=== PATIENT | male | born 1970 | race Caucasian/White ===

== ENCOUNTER 2019-10-05 17:54 | Outpatient (CLI) | payer SELFPAY ==
[2019-10-05 20:02] LABS: Basophils % 0.4 %; Eosinophils # 0.2 10^3/uL (0.0-0.8); Hematocrit 42.4 % (42.0-52.0); Lymphocytes # 3.5 10^3/uL (0.8-4.8); Lymphocytes % 43.3 %; Mean Corpuscular Hemoglobin 28.6 pg (28.0-34.0); Mean Corpuscular Volume 86.5 fL (80-94); Mean Platelet Volume 10.9 fL (7.4-10.4); Monocytes # 0.7 10^3/uL (0.2-0.9); Monocytes % 8.9 %; Neutrophils # 3.6 10^3/uL (1.8-7.7); Neutrophils % 45.3 %; Nucleated Red Blood Cells % 0 %; Platelet Count 410 10^3/cmm (130-400); Red Cell Distribution Width 13.7 % (12.1-15.1)
[2019-10-05 20:28] LABS: Estmated Average Glucose 295; Hemoglobin A1C 11.9 % (4.0-6.0)
[2019-10-05 20:31] LABS: Alanine Aminotransferase 47 U/L (0-41); Albumin Level 4.5 g/dL (3.5-5.2); Alkaline Phosphatase 60 IU/L (40-130); Anion Gap 25.4 (5-19); Aspartate Amino Transferase 28 U/L (0-40); Blood Urea Nitrogen 17 mg/dL (6-20); Calcium 9.8 mg/dL (8.5-10.5); Carbon Dioxide 19 mmol/L (22-29); Chloride 91 mmol/L (98-107); Chol HDL Ratio 7.54 mg/dL (1.0-5.00); Cholesterol 211 mg/dL (0-200); Globulin 3.3 g/dL (1.3-4.6); Glomerular Filtration Rate 46.6 mL/min (90-130); Glucose 297 mg/dL (65-115); HDL Cholesterol 28 mg/dL (60-100); Osmolality Calculated 281 mOsm/kg (285-295); Potassium 3.4 mmol/L (3.5-5.1); Sodium 132 mmol/L (136-145); Total Bilirubin 0.3 mg/dL (0.15-1.2); Total Protein 7.8 g/dL (6.6-8.7); Triglycerides 412 mg/dL (0-150)
[2019-10-05 20:47] LABS: LDL Cholesterol Direct 118 mg/dL (0-100)
== END 2019-10-05 17:55 | disposition home or self-care (01) ==
LOC: LAB 17:55
PROVIDERS: Visit Provider General Practice
DX: E11.9 Type 2 diabetes mellitus without complications (principal); E78.5 Hyperlipidemia, unspecified
CPT/HCPCS: 80053; 80061; 83036; 83721; 85025

== ENCOUNTER → 2021-05-05 14:34 | Outpatient (BNVA) | payer MEDICAID, SELFPAY | PROVIDERS: Visit Provider Family Medicine | DX: E78.2 Mixed hyperlipidemia (principal); Z76.89 Persons encountering health services in other specified circumstances; E11.40 Type 2 diabetes mellitus with diabetic neuropathy, unspecified; K21.9 Gastro-esophageal reflux disease without esophagitis; Z68.33 Body mass index [BMI] 33.0-33.9, adult; E11.9 Type 2 diabetes mellitus without complications | CPT/HCPCS: 80053; 80061; 83036; 83721; 84443; 85025 ==

== ENCOUNTER → 2021-08-11 08:50 | Outpatient (BNVA) | payer MEDICAID, SELFPAY | PROVIDERS: PCP Family Medicine; Visit Provider Family Medicine | DX: E11.42 Type 2 diabetes mellitus with diabetic polyneuropathy (principal); E78.2 Mixed hyperlipidemia; Z68.33 Body mass index [BMI] 33.0-33.9, adult | CPT/HCPCS: 80048; 80061; 83036 ==

== ENCOUNTER → 2021-11-26 09:13 | Outpatient (BNVA) | payer MEDICAID, SELFPAY | PROVIDERS: PCP Family Medicine; Visit Provider Family Medicine | DX: E11.40 Type 2 diabetes mellitus with diabetic neuropathy, unspecified (principal); E78.00 Pure hypercholesterolemia, unspecified; K04.7 Periapical abscess without sinus; E78.2 Mixed hyperlipidemia; K21.9 Gastro-esophageal reflux disease without esophagitis | CPT/HCPCS: 80048; 80061; 83036 ==

== ENCOUNTER → 2021-12-11 10:13 | Outpatient (BNVA) | payer MEDICAID, SELFPAY | PROVIDERS: PCP Family Medicine; Visit Provider Surgery | DX: Z12.11 Encounter for screening for malignant neoplasm of colon (principal) | CPT/HCPCS: 99024 ==

== ENCOUNTER → 2021-12-24 14:02 | Outpatient (BNVA) | payer MEDICAID, SELFPAY | PROVIDERS: PCP Family Medicine; Visit Provider Surgery | DX: K42.9 Umbilical hernia without obstruction or gangrene (principal); K21.9 Gastro-esophageal reflux disease without esophagitis; K92.1 Melena | CPT/HCPCS: 99204 ==

== ENCOUNTER → 2022-03-16 08:47 | Outpatient (BNVA) | payer MEDICAID, SELFPAY | PROVIDERS: PCP Family Medicine; Visit Provider Family Medicine | DX: E78.2 Mixed hyperlipidemia (principal); Z12.5 Encounter for screening for malignant neoplasm of prostate; E11.8 Type 2 diabetes mellitus with unspecified complications | CPT/HCPCS: 80053; 80061; 83036; 84153; 85025 ==

== ENCOUNTER 2022-04-06 05:40 | Day surgery (SDC) | payer MEDICAID, SELFPAY ==
[2022-03-31 14:33] VITALS: BMI 32.5
[2022-04-06 06:12] VITALS: BP 139/85; PULSE 104; RESP 18; TEMP 36.2; O2SAT 98
[2022-04-06] MEDS: sodium chloride 0.9% 1,000 ML 30 ML IV (06:19)
[2022-04-06 06:20] LABS: Glucose Point of Care 139 mg/dL (70-110)
--- NOTE | 2022-04-06 06:55 | ANES.PREANE2 ---
Pre-Anesthetic Assessment Height/Weight: Height 1.83 m Weight 108.862 kg Temp Pulse Resp BP Pulse Ox O2 Del Method 97.2 F L 104 H 18 139/85 98 04/06/22 06:12 04/06/22 06:12 04/06/22 06:12 04/06/22 06:12 04/06/22 06:12 04/06/22 06:12 Preop Diagnosis: screening Operation Date: 04/06/22 07:30 Proposed Procedures s Egd and Colonoscopy 56674,65611,Z12.11(Not Applicable) - Rao Antony DO p Colonoscopy 66345,Z12.11(Not Applicable) - Rao Antony DO Familial anesthetic complications: none Was Beta Zia taken within 24 hours: N/A Was Clonidine taken within 24 hours: N/A Last intake: Intake Last Liquid Date 04/05/22 Last Liquid Time 14:00 Last Solid Date 04/04/22 Last Solid Time 14:00 Social No alcohol and No tobacco Exam alert, oriented x 3, clear to auscultation bilaterally and regular rate & rhythm Airway Submandibular: within normal limits Cervical ROM: within normal limits Mallampati: Class II Dentition: chipped and loose Comments: Comments: poor dentition Pulmonary Sleep Apnea CV/HEM Hypertension Chronic Renal Failure (stage 3 no dialysis) Hepatic None reported GI Gastroesophageal Reflux Disease (controlled) Metabolic Diabetes Mellitus, Hyperlipidemia and Morbid Obesity type 1 Musc/skel Lower Back Pain Neuropsych Neuropathy Anesthetic Plan ASA status: 3 Anesthesia: MAC Risk of > 500 ml blood loss (7ml/kg in children): No Medications/Allergies Home Medications Medication Instructions Recorded Confirmed Last Taken Type diabetic supplies, miscellan. #1 ea 05/12/21 03/16/22 04/04/22 Rx atorvastatin 40 mg tablet 40 mg PO DAILY #90 tabs 11/26/21 03/31/22 04/04/22 Rx canagliflozin 300 mg tablet 300 mg PO DAILY #90 tabs 11/26/21 03/31/22 04/04/22 Rx (Invokana) lisinopril 20 mg tablet 20 mg PO DAILY #90 tabs 11/26/21 03/31/22 04/04/22 Rx metformin 1,000 mg tablet 1,000 mg PO BID #180 tabs 11/26/21 03/31/22 04/04/22 Rx peg 3350-electrolytes 236 240 ml PO Q10M #4,000 mL 12/24/21 03/31/22 Unknown Rx gram-22.74 gram-6.74 gram-5.86 gram solution (Golytely) hydrochlorothiazide 25 mg tablet See Rx Instructions .Route 01/19/22 03/31/22 04/06/22 04:00 Rx .COMPLEX #90 tabs tamsulosin 0.4 mg capsule See Rx Instructions .Route 01/19/22 03/31/22 04/04/22 Rx .COMPLEX #90 caps pregabalin 50 mg capsule (Lyrica) 50 mg PO BID #60 caps 03/10/22 03/31/22 04/04/22 Rx insulin glargine 100 unit/mL (3 25 unit (0.25 mL) SUBCUT DAILY #15 03/16/22 03/31/22 04/04/22 Rx mL) subcutaneous pen (Lantus mL Solostar U-100 Insulin) esomeprazole magnesium 40 mg 40 mg PO DAILY 04/06/22 03/31/22 04/04/22 History capsule,delayed release (Nexium) Allergies Allergy/AdvReac Type Severity Reaction Status Date / Time No Known Allergies Allergy Verified 03/16/22 08:13 Current Medications Generic Name Dose Route Start Last Admin Trade Name Freq PRN Reason Stop Dose Admin Sodium Chloride 1,000 mls @ 30 mls/hr 04/06/22 06:00 04/06/22 06:19 Sodium Chloride 0.9% IV 04/07/22 05:59 30 mls/hr .Q24H DIANE Administration PFSH Anesthesia Medical History Reducible umbilical hernia Social History Smoking and tobacco status: never smoked Alcohol intake: never Data Anesthesia Cardiac Studies: No Data to Display
--- NOTE | 2022-04-06 06:58 | PM.HP ---
Providers/Chief Complaint Primary Care Provider: Andrzej Clarke DO Chief Complaint: Z12.11 History of Present Illness Bola Sheriff is a 51 year old male here for EGD and colonoscopy Medications/Allergies Home Medications Medication Instructions Recorded Confirmed Last Taken Type diabetic supplies, miscellan. #1 ea 05/12/21 03/16/22 04/04/22 Rx atorvastatin 40 mg tablet 40 mg PO DAILY #90 tabs 11/26/21 03/31/22 04/04/22 Rx canagliflozin 300 mg tablet 300 mg PO DAILY #90 tabs 11/26/21 03/31/22 04/04/22 Rx (Invokana) lisinopril 20 mg tablet 20 mg PO DAILY #90 tabs 11/26/21 03/31/22 04/04/22 Rx metformin 1,000 mg tablet 1,000 mg PO BID #180 tabs 11/26/21 03/31/22 04/04/22 Rx peg 3350-electrolytes 236 240 ml PO Q10M #4,000 mL 12/24/21 03/31/22 Unknown Rx gram-22.74 gram-6.74 gram-5.86 gram solution (Golytely) hydrochlorothiazide 25 mg tablet See Rx Instructions .Route 01/19/22 03/31/22 04/06/22 04:00 Rx .COMPLEX #90 tabs tamsulosin 0.4 mg capsule See Rx Instructions .Route 01/19/22 03/31/22 04/04/22 Rx .COMPLEX #90 caps pregabalin 50 mg capsule (Lyrica) 50 mg PO BID #60 caps 03/10/22 03/31/22 04/04/22 Rx insulin glargine 100 unit/mL (3 25 unit (0.25 mL) SUBCUT DAILY #15 03/16/22 03/31/22 04/04/22 Rx mL) subcutaneous pen (Lantus mL Solostar U-100 Insulin) esomeprazole magnesium 40 mg 40 mg PO DAILY 04/06/22 03/31/22 04/04/22 History capsule,delayed release (Nexium) Allergies Allergy/AdvReac Type Severity Reaction Status Date / Time No Known Allergies Allergy Verified 03/16/22 08:13 PFSH Acute PFSH: Medical History Reducible umbilical hernia Social History Smoking and tobacco status: never smoked Alcohol intake: never Vitals/I&O/Wt Last Vital Signs Temp 97.2 F L 04/06/22 06:12 Pulse 104 H 04/06/22 06:12 Resp 18 04/06/22 06:12 BP 139/85 04/06/22 06:12 Pulse Ox 98 04/06/22 06:12 O2 Del Method 04/06/22 06:12 A&P Assessment and plan (1) GERD without esophagitis: (2) Screening for malignant neoplasm of colon: Plan EGD and colonoscopy Attestations Medical Necessity Statement*: Home Coding Level of Care Code Acute Library Customer Service Clerk for Chg Fwd Diagnoses GERD without esophagitis K21.9 Screening for malignant neoplasm of colon Z12.11
[2022-04-06 07:18] VITALS: BP 120/78; PULSE 95; RESP 18; TEMP 36.5; O2SAT 94
--- NOTE | 2022-04-06 07:22 | P.PCN_ITS ---
PACU note Narrative: VSS, Good respiratory effort, report to SENIOR FINANCE MANAGER Exam: awake
--- NOTE | 2022-04-06 07:22 | PM.PACU ---
PACU note Narrative: VSS, Good respiratory effort, report to BAKERY ASSOCIATE Exam: awake
[2022-04-06 07:33] VITALS: BP 120/85; PULSE 87; RESP 18; O2SAT 95
--- NOTE | 2022-04-06 13:49 | ANE.PACU2 ---
Inpatient post-anesthesia follow up: Airway intact: Yes Vital signs: Temperature 97.7 F Pulse Rate 87 Respiratory Rate 18 Blood Pressure 120/85 Pulse Oximetry 95 Oxygen Delivery Me thod Room Air Oxygen Flow Rate Fraction of Inspir ed Oxygen Hydration adequate: Yes Nausea and vomiting: No Pain level: 1 Mental status: Baseline
== END 2022-04-06 07:39 | disposition home or self-care (01) ==
PROVIDERS: PCP Family Medicine; Visit Provider Surgery
PROC: 0DJ08ZZ Inspection of Upper Intestinal Tract, Via Natural or Artificial Opening Endoscopic (ICD-10-PCS; CPT 43235; principal; 2022-04-06 07:30)
PROC: 0DJD8ZZ Inspection of Lower Intestinal Tract, Via Natural or Artificial Opening Endoscopic (ICD-10-PCS; CPT 45330; 2022-04-06 07:30)
DX: Z12.11 Encounter for screening for malignant neoplasm of colon (principal); K21.9 Gastro-esophageal reflux disease without esophagitis; E10.22 Type 1 diabetes mellitus with diabetic chronic kidney disease; I12.9 Hypertensive chronic kidney disease with stage 1 through stage 4 chronic kidney disease, or unspecified chronic kidney disease; N18.30 Chronic kidney disease, stage 3 unspecified; Z79.84 Long term (current) use of oral hypoglycemic drugs; Z79.4 Long term (current) use of insulin; K29.50 Unspecified chronic gastritis without bleeding; B96.81 Helicobacter pylori [H. pylori] as the cause of diseases classified elsewhere; G47.30 Sleep apnea, unspecified; E78.5 Hyperlipidemia, unspecified; E66.01 Morbid (severe) obesity due to excess calories
CPT/HCPCS: 36416; 43239; 45330; 82962; 88305; 88342; J2704; J7030

== ENCOUNTER 2022-06-18 08:26 | Day surgery (SDC) | payer MEDICAID, SELFPAY ==
[2022-06-17 11:25] VITALS: BMI 32.5
[2022-06-18] MEDS: sodium chloride 0.9% 1,000 ML 30 ML IV (09:15)
[2022-06-18 09:21] VITALS: BP 146/88; PULSE 90; RESP 18; TEMP 36.5; O2SAT 97
[2022-06-18 09:28] LABS: Glucose Point of Care 189 mg/dL (70-110)
--- NOTE | 2022-06-18 10:19 | ANES.PREANE2 ---
Pre-Anesthetic Assessment Height/Weight: Height 1.83 m Weight 108.862 kg Temp Pulse Resp BP Pulse Ox O2 Del Method 97.7 F 90 18 146/88 97 06/18/22 09:21 06/18/22 09:21 06/18/22 09:21 06/18/22 09:21 06/18/22 09:21 06/18/22 09:21 Preop Diagnosis: screening Operation Date: 06/18/22 10:45 Proposed Procedures p Colonoscopy 36142,Z12.11(Not Applicable) - Rao Antony DO Familial anesthetic complications: None Was Beta Zia taken within 24 hours: N/A Was Clonidine taken within 24 hours: N/A Last intake: Intake Last Liquid Date 06/17/22 Last Liquid Time 21:00 Last Solid Date 06/16/22 Last Solid Time 14:00 Social No alcohol and No tobacco Exam alert, oriented x 3, clear to auscultation bilaterally and regular rate & rhythm Airway Mallampati: Class III Dentition: other (poor dentition) Comments: Comments: multiple missing/chipped Pulmonary Sleep Apnea CV/HEM Hypertension Chronic Renal Insufficiency Metabolic Diabetes Mellitus and Hyperlipidemia Anesthetic Plan ASA status: 3 Anesthesia: MAC Risk of > 500 ml blood loss (7ml/kg in children): No Medications/Allergies Home Medications Medication Instructions Recorded Confirmed Last Taken Type diabetic supplies, miscellan. #1 ea 05/12/21 04/28/22 04/04/22 Rx canagliflozin 300 mg tablet 300 mg PO DAILY #90 tabs 11/26/21 06/17/22 06/16/22 Rx (Invokana) lisinopril 20 mg tablet 20 mg PO DAILY #90 tabs 11/26/21 06/17/22 06/17/22 Rx pregabalin 50 mg capsule (Lyrica) 50 mg PO BID #60 caps 03/10/22 06/18/22 06/17/22 Rx insulin glargine 100 unit/mL (3 25 unit (0.25 mL) SUBCUT DAILY #15 03/16/22 06/17/22 06/16/22 Rx mL) subcutaneous pen (Lantus mL Solostar U-100 Insulin) atorvastatin 40 mg tablet 40 mg PO DAILY #90 tabs 06/14/22 06/18/22 06/16/22 Rx hydrochlorothiazide 25 mg tablet 25 mg PO DAILY 06/17/22 06/17/22 06/16/22 History metformin 1,000 mg tablet 1,000 mg PO DAILY 06/17/22 06/17/22 06/16/22 History tamsulosin 0.4 mg capsule 0.4 mg PO DAILY 06/17/22 06/17/22 06/16/22 History Allergies Allergy/AdvReac Type Severity Reaction Status Date / Time No Known Allergies Allergy Verified 06/17/22 11:21 [facility] Anesthesia Medical History (Updated 04/28/22 @ 16:38 by Rao Antony DO) Helicobacter pylori gastritis Reducible umbilical hernia Social History Smoking and tobacco status: never smoked Alcohol intake: never Data Anesthesia Cardiac Studies: No Data to Display
--- NOTE | 2022-06-18 10:43 | P.HP_ITS ---
Providers/Chief Complaint Primary Care Provider: Andrzej Clarke DO Chief Complaint: Z12.11 History of Present Illness Bola Sheriff is a 51 year old male here for a screening colonoscopy Medications/Allergies Home Medications Medication Instructions Recorded Confirmed Last Taken Type diabetic supplies, miscellan. #1 ea 05/12/21 04/28/22 04/04/22 Rx canagliflozin 300 mg tablet 300 mg PO DAILY #90 tabs 11/26/21 06/17/22 06/16/22 Rx (Invokana) lisinopril 20 mg tablet 20 mg PO DAILY #90 tabs 11/26/21 06/17/22 06/17/22 Rx pregabalin 50 mg capsule (Lyrica) 50 mg PO BID #60 caps 03/10/22 06/18/22 06/17/22 Rx insulin glargine 100 unit/mL (3 25 unit (0.25 mL) SUBCUT DAILY #15 03/16/22 06/17/22 06/16/22 Rx mL) subcutaneous pen (Lantus mL Solostar U-100 Insulin) atorvastatin 40 mg tablet 40 mg PO DAILY #90 tabs 06/14/22 06/18/22 06/16/22 Rx hydrochlorothiazide 25 mg tablet 25 mg PO DAILY 06/17/22 06/17/22 06/16/22 Hist ory metformin 1,000 mg tablet 1,000 mg PO DAILY 06/17/22 06/17/22 06/16/22 History tamsulosin 0.4 mg capsule 0.4 mg PO DAILY 06/17/22 06/17/22 06/16/22 History Allergies Allergy/AdvReac Type Severity Reaction Status Date / Time No Known Allergies Allergy Verified 06/17/22 11:21 PFSH Acute PFSH: Medical History (Updated 04/28/22 @ 16:38 by Rao Antony DO) Helicobacter pylori gastritis Reducible umbilical hernia Social History Smoking and tobacco status: never smoked Alcohol intake: never Vitals/I&O/Wt Last Vital Signs Temp 97.7 F 06/18/22 09:21 Pulse 90 06/18/22 09:21 Resp 18 06/18/22 09:21 BP 146/88 06/18/22 09:21 Pulse Ox 97 06/18/22 09:21 O2 Del Method 06/18/22 09:21 Weight last 48 hrs Weight 240 lb A&P Assessment and plan (1) Colon cancer screening: Plan Screening colonoscopy Attestations Medical Necessity Statement*: Home Coding Level of Care Code Acute Code for Chg Fwd Diagnoses Colon cancer screening Z12.11
[2022-06-18 11:10] VITALS: BP 124/83; PULSE 79; RESP 16; TEMP 36.2; O2SAT 98
[2022-06-18 11:20] VITALS: BP 126/89; PULSE 83; RESP 16; O2SAT 95
--- NOTE | 2022-06-18 17:09 | ANE.PACU2 ---
Inpatient post-anesthesia follow up: Airway intact: Yes Vital signs: Temperature 97.1 F Pulse Rate 83 Respiratory Rate 16 Blood Pressure 126/89 Pulse Oximetry 95 Oxygen Delivery Me thod Room Air Oxygen Flow Rate Fraction of Inspir ed Oxygen Hydration adequate: Yes Nausea and vomiting: No Pain level: 1 Mental status: Baseline
== END 2022-06-18 11:31 | disposition home or self-care (01) ==
PROVIDERS: PCP Family Medicine; Visit Provider Surgery
PROC: 0DJD8ZZ Inspection of Lower Intestinal Tract, Via Natural or Artificial Opening Endoscopic (ICD-10-PCS; CPT 45378; principal; 2022-06-18 10:45)
DX: Z12.11 Encounter for screening for malignant neoplasm of colon (principal); Z79.4 Long term (current) use of insulin; K57.30 Diverticulosis of large intestine without perforation or abscess without bleeding; G47.30 Sleep apnea, unspecified; I10 Essential (primary) hypertension; E11.9 Type 2 diabetes mellitus without complications; E78.5 Hyperlipidemia, unspecified
CPT/HCPCS: 36416; 82962; G0121; J2704; J7030

== ENCOUNTER → 2022-09-14 09:21 | Outpatient (BNVA) | payer MEDICAID, SELFPAY | PROVIDERS: PCP Family Medicine; Visit Provider Family Medicine | DX: E11.40 Type 2 diabetes mellitus with diabetic neuropathy, unspecified (principal); E78.2 Mixed hyperlipidemia | CPT/HCPCS: 80048; 83036 ==

== ENCOUNTER → 2022-09-25 07:54 | Outpatient (BNVA) | payer MEDICAID, SELFPAY | PROVIDERS: PCP Family Medicine | DX: J02.9 Acute pharyngitis, unspecified (principal) | CPT/HCPCS: 87880 ==

== ENCOUNTER 2022-11-18 08:37 | Inpatient (IN) | payer MEDICAID, SELFPAY ==
[2022-11-18] VITALS (21 sets, daily range): BP systolic 94–157; BP diastolic 68–89; PULSE 62–105; RESP 16–20; TEMP 36.1–36.9; O2SAT 96–100; BMI 33.9
--- NOTE | 2022-11-18 08:40 | XR_ITS ---
WS: [id number] XR toe LT min 2V [id number] REASON FOR EXAM: great toe FINDINGS: Comminuted fracture of the tuft of the distal phalanx of the great toe. No radiopaque soft tissue foreign body. XR/XR toe LT min 2V [id number] IMPRESSION: Left great toe fracture as above.
--- NOTE | 2022-11-18 08:58 | ED_ITS ---
HPI - Extremity Problem General: Chief complaint: Extremity Injury, Lower Stated complaint: diabetic, black spot on Left big toe Time Seen by Provider: 11/18/22 08:39 Source: patient Mode of arrival: ambulatory History of Present Illness: 52-year-old male with a known history of insulin-dependent diabetes presents emergency room from the urgent care clinics. On November 07 he had hurt his toe he got a black spot on the tip of the toe since then he developed an ulcer at the medial tip of the left great toe. He tried to treat it at home with various home remedies soaking cleaning with alcohol topical bandages and topical antibi otics. It is progressively worsened gotten red and inflamed the last 24 hours the redness is gone from involving only the toe to extending proximally across the MP joint into the forefoot. It has a foul odor to it as well. He denies any fever sweats or chills he has a history of peripheral neuropathy. No history of peripheral vascular disease or coronary artery disease. MD Complaint: extremity swelling Onset (ago): day(s) () Pain Consistency: constant Location: left and toe (Great) Relieving factors: nothing Exacerbating factors: nothing Associated symptoms: Deny arthralgias, chest pain, fever(s), myalgias, rash, short of breath or other Review of Systems Const: Denies: fever(s) or chills ENMT: Denies: throat pain, ear or mastoid pain, nasal discharge or nasal congestion Card: Denies: chest pain Resp: Denies: dyspnea, productive cough or non-productive cough GI: Denies: abdominal pain, nausea, vomiting, hematemesis, coffee ground emesis, diarrhea, constipation, bloating, hematochezia or melena : Denies: flank pain, dysuria, urinary frequency or urinary urgency Skin/Breast: Reports: new lesions and changing lesions; Denies: rash or pruritus PFSH ED PFSH: Medical History Helicobacter pylori gastritis Reducible umbilical hernia Social History Smoking and tobacco status: never smoked Alcohol intake: never Substance/Drug Use: never Physical Exam Const: GENERAL APPEARANCE: cooperative and comfortable ORIENTATION/CONSCIOUSNESS: Yes awake, Yes oriented to person, Yes oriented to place and Yes oriented to time HENMT: COMMON NORMALS: normocephalic, atraumatic and hearing grossly normal bilaterally HEAD & SCALP: normocephalic and atraumatic Resp: COMMON NORMALS: normal respiratory effort, No retractions, No use of accessory muscles and clear to auscultation bilaterally AUSCULTATION: clear to auscultation bilaterally Cardio: COMMON NORMALS: regular rate, regular rhythm and No murmurs present (Cardio) RATE: regular rate RHYTHM: regular rhythm GI: COMMON NORMALS: Soft to palpation and No hepatosplenomegaly present AUSCULTATION: Yes normoactive bowel sounds PALPATION: Yes Soft to palpation, No Tenderness to palpation present (GI), No Guarding due to palpation present (GI) and Yes No hepatosplenomegaly present Extremity: OTHER: Left great toe has a 1 cm round ulceration at the distal medial tip is involves the full-thickness of the skin. There is significant swelling of the left great toe with proximal erythema and induration extending across the MP joint to the distal portions of the first and met second metatarsals there is also some mild involvement of the second toe medially and dorsally. Neuro: SENSORIUM/ORIENTATION: Yes oriented to person, Yes oriented to place and Yes oriented to time Skin: COMMON NORMALS: no rashes or lesions noted GENERAL SKIN EXAM: no rashes or lesions noted Course Vital Signs: Vital signs: Vital Signs Temperature 98.4 F 11/18/22 08:49 Pulse Rate 98 11/18/22 10:00 Respiratory Rate 16 11/18/22 10:00 Blood Pressure 139/86 11/18/22 10:00 Pulse Oximetry 98 11/18/22 10:00 Oxygen Delivery Me thod Room Air 11/18/22 08:49 MDM - Extremity (Nontraumatic) Medical Decision Making Plain film shows extensive destruction and osteomyelitic changes of the left great toe. Clinically has significant cellulitis. Consult podiatry admit to hospitalist services. Medical Records I reviewed the patient's medical records. Lab Data I reviewed the patient's lab results. 11/18/22 08:57 11/18/22 08:57 Radiology Impressions Toe X-Ray 11/18/22 08:40 IMPRESSION: Left great toe fracture as above. Laboratory Results WBC 9.5 10^3/uL (4.0-10.0) 11/18/22 08:57 RBC 4.35 10^6/uL (4.1-5.3) 11/18/22 08:57 Hgb 11.5 g/dL (11.7-16.6) L 11/18/22 08:57 Hct 35.9 % (42.0-52.0) L 11/18/22 08:57 MCV 82.5 fl (80-94) 11/18/22 08:57 MCH 26.4 pg (28.0-34.0) L 11/18/22 08:57 MCHC 32.0 g/dL (30.0-36.0) 11/18/22 08:57 RDW 15.6 % (12.1-15.1) H 11/18/22 08:57 Plt Count 421 10^3/cmm (130-400) H 11/18/22 08:57 MPV 9.2 fL (7.4-10.4) 11/18/22 08:57 Neut % (Auto) 65.5 % 11/18/22 08:57 Lymph % (Auto) 25.0 % 11/18/22 08:57 [place] % (Auto) 7.7 % 11/18/22 08:57 Eos % (Auto) 1.3 % 11/18/22 08:57 Baso % (Auto) 0.3 % 11/18/22 08:57 Neut # (Auto) 6.19 10^3/uL (1.8-7.7) 11/18/22 08:57 Lymph # (Auto) 2.4 10^3/uL (0.8-4.8) 11/18/22 08:57 [place] # (Auto) 0.7 10^3/uL (0.2-0.9) 11/18/22 08:57 Eos # (Auto) 0.1 10^3/uL (0.0-0.8) 11/18/22 08:57 Baso # (Auto) 0.0 10^3/uL (0.0-0.1) 11/18/22 08:57 Nucleated RBC % (auto) 0 % 11/18/22 08:57 Nucleated RBCs # 0.0 /100WBC 11/18/22 08:57 Sodium 130 mmol/L (136-145) L 11/18/22 08:57 Potassium 3.9 mmol/L (3.5-5.1) 11/18/22 08:57 Chloride 95 mmol/L (98-107) L 11/18/22 08:57 Carbon Dioxide 21 mmol/L (22-29) L 11/18/22 08:57 Anion Gap 17.9 (5-19) 11/18/22 08:57 BUN 21 mg/dL (6-20) H 11/18/22 08:57 Creatinine 1.4 mg/dL (0.7-1.2) H 11/18/22 08:57 GFR Calculation 53.4 mL/min (90-130) L 11/18/22 08:57 Glucose 169 mg/dL (65-115) H 11/18/22 08:57 Calculated Osmolality 277 mOsm/kg (285-295) L 11/18/22 08:57 Calcium 9.6 mg/dL (8.5-10.5) 11/18/22 08:57 Total Bilirubin 0.2 mg/dL (0.15-1.2) 11/18/22 08:57 AST 11 U/L (0-40) 11/18/22 08:57 ALT 16 U/L (0-41) 11/18/22 08:57 Alkaline Phosphatase 58 U/L (40-130) 11/18/22 08:57 C-Reactive Protein 60.2 mg/L (0.0-4.9) H 11/18/22 08:57 Total Protein 8.3 g/dL (6.6-8.7) 11/18/22 08:57 Albumin 4.2 g/dL (3.5-5.2) 11/18/22 08:57 Globulin 4.1 g/dL (1.3-4.6) 11/18/22 08:57 Discharge Plan Discharge Patient Disposition: Admitted As Inpatient Clinical Impression: Osteomyelitis of great toe of left foot, Diabetic neuropathy, Diabetes mellitus type 2, uncontrolled, with complications Condition: Stable Coding Level of Care Code ED Restorative Rehab Aide for Beatriz Acosta
[2022-11-18 09:07] LABS: Basophils % 0.3 %; Eosinophils # 0.1 10^3/uL (0.0-0.8); Eosinophils % 1.3 %; Hematocrit 35.9 % (42.0-52.0); Hemoglobin 11.5 g/dL (11.7-16.6); Lymphocytes # 2.4 10^3/uL (0.8-4.8); Mean Corpuscular Hemoglobin 26.4 pg (28.0-34.0); Mean Corpuscular Volume 82.5 fl (80-94); Mean Platelet Volume 9.2 fL (7.4-10.4); Monocytes # 0.7 10^3/uL (0.2-0.9); Monocytes % 7.7 %; Neutrophils # 6.19 10^3/uL (1.8-7.7); Neutrophils % 65.5 %; Nucleated Red Blood Cells % 0 %; Platelet Count 421 10^3/cmm (130-400); Red Blood Count 4.35 10^6/uL (4.1-5.3); Red Cell Distribution Width 15.6 % (12.1-15.1); White Blood Count 9.5 10^3/uL (4.0-10.0)
[2022-11-18 09:22] LABS: Alanine Aminotransferase 16 U/L (0-41); Albumin Level 4.2 g/dL (3.5-5.2); Alkaline Phosphatase 58 U/L (40-130); Anion Gap 17.9 (5-19); Aspartate Amino Transferase 11 U/L (0-40); Blood Urea Nitrogen 21 mg/dL (6-20); C Reactive Protein 60.2 mg/L (0.0-4.9); Calcium 9.6 mg/dL (8.5-10.5); Carbon Dioxide 21 mmol/L (22-29); Chloride 95 mmol/L (98-107); Globulin 4.1 g/dL (1.3-4.6); Glomerular Filtration Rate 53.4 mL/min (90-130); Glucose 169 mg/dL (65-115); Osmolality Calculated 277 mOsm/kg (285-295); Potassium 3.9 mmol/L (3.5-5.1); Sodium 130 mmol/L (136-145); Total Bilirubin 0.2 mg/dL (0.15-1.2); Total Protein 8.3 g/dL (6.6-8.7)
[2022-11-18] MEDS: vancomycin 1,000 MG in sodium chloride 0.9% 250 ML 250 MG IV (09:47)
--- NOTE | 2022-11-18 10:05 | PM.CONSULT ---
Providers/Reason For Consult Consulting Physician/Specialty*: Parker Fofana D.P.M. Reason for Consult*: Gangrene left great toe. Primary Care Provider: Andrzej Clarke DO History of Present Illness History of Present Illness Bola Sheriff is a 52 year old male presents with gangrene to the left great toe several weeks in duration. Patient is diabetic last A1c 8.6 taken 09/14/2022. Patient denies smoking. 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 Several weeks ago he noticed redness and has progressed. He tried at home soaks with Epsom salts. Noticed increased redness and foul-smelling drainage and went to the emergency department. Review of Systems General: Reports: 10 or more systems reviewed and unremarkable except in HPI and below Const: Denies: fever(s) or chills Eyes: Denies: change in vision Card: Denies: chest pain or palpitations Resp: Denies: dyspnea or productive cough GI: Denies: abdominal pain, nausea or vomiting : Denies: flank pain Musc: Reports: extremity swelling, joint stiffness and deformity Skin/Breast: Reports: erythema, sores, changes in skin color, dry skin, nail changes and change in hair Neuro: Reports: numbness in extremities, sensory changes and difficulty walking Psych: Denies: suicidal ideation Endo: Denies: change in body appearance Jovanny/Lymph: Denies: tender lymph nodes Medications/Allergies Home Medications Medication Instructions Recorded Confirmed Last Taken Type diabetic supplies, miscellan. #1 ea 08/13/22 11/18/22 Unknown Rx pen needle, diabetic 32 gauge x #100 ea 09/01/22 11/18/22 Unknown Rx 1/4 (TechLITE Pen Needle) pregabalin 50 mg capsule (Lyrica) 50 mg PO BID #60 caps 09/07/22 11/18/22 11/18/22 05:00 Rx aspirin 81 mg tablet,delayed 81 mg PO QAM 11/18/22 11/18/22 11/18/22 05:00 History release atorvastatin 40 mg tablet 40 mg PO BEDTIME 11/18/22 11/18/22 11/17/22 History canagliflozin 300 mg tablet 300 mg PO QAM 11/18/22 11/18/22 11/18/22 05:00 History (Invokana) hydrochlorothiazide 25 mg tablet 25 mg PO QAM 11/18/22 11/18/22 11/18/22 05:00 History insulin glargine 100 unit/mL (3 See Rx Instructions .Route .COMPLEX 11/18/22 11/18/22 11/17/22 History mL) subcutaneous pen (Lantus Solostar U-100 Insulin) lisinopril 20 mg tablet 20 mg PO QAM 11/18/22 11/18/22 11/18/22 History metformin 1,000 mg tablet 1,000 mg PO BID 11/18/22 11/18/22 11/18/22 05:00 History multivitamin 1 tab PO QAM 11/18/22 11/18/22 11/18/22 05:00 History pantoprazole 40 mg tablet,delayed 40 mg PO QAM 11/18/22 11/18/22 11/18/22 05:00 History release tamsulosin 0.4 mg capsule 0.4 mg PO QAM 11/18/22 11/18/22 11/18/22 05:00 History Allergies Allergy/AdvReac Type Severity Reaction Status Date / Time No Known Allergies Allergy Verified 11/18/22 09:08 PFSH Acute PFSH: Medical History Helicobacter pylori gastritis Reducible umbilical hernia Social History Smoking and tobacco status: never smoked Alcohol intake: never Substance/Drug Use: never Vitals/I&O/Wt Last Vital Signs Temp 98.4 F 11/18/22 08:49 Pulse 98 11/18/22 10:00 Resp 16 11/18/22 10:00 BP 139/86 11/18/22 10:00 Pulse Ox 98 11/18/22 10:00 O2 Del Method Room Air 11/18/22 08:49 Weight last 48 hrs Weight 250 lb Physical Exam Narrative: GENERAL: Patient is alert and oriented ?3 and in no acute distress. The following is a focused bilateral lower extremity exam. VASCULAR: Dorsalis pedis palpable bilaterally. Posterior tibial arteries palpable. Capillary refill time less than 3 seconds to the right great toe. Delayed at the left great toe. Calf is supple and nontender proximally and distally. Decreased pedal hair growth. Focal edema to the left forefoot and impressive edema at the left great toe. NEUROLOGICAL: Protective sensation intact 0/10 sites, tested with [place] Hannah monofilament to bilateral feet. DERMATOLOGICAL: Full-thickness wound probes to bone at the distal phalanx left great toe. Desquamation left distal toe. Macerated wound margin. Erythema at the left great toe globally extending to the forefoot. MUSCULOSKELETAL: Crepitus with soft tissue palpation at the left great toe distally. Muscle strength +5 in all 3 planes to the bilateral foot and ankle. Data 11/18/22 08:57 11/18/22 08:57 Micro: Microbiology 11/18/22 09:40 Blood Culture - Preliminary Blood SPECIMEN COLLECTED 11/18/22 09:35 Blood Culture - Preliminary Blood SPECIMEN COLLECTED A&P Assessment and plan (1) Osteomyelitis of great toe of left foot: (2) Diabetes mellitus type 2, uncontrolled, with complications: (3) Cellulitis of left foot: Plan 52-year-old insulin-dependent diabetic male presents with gangrene to the left great toe. Soft tissue emphysema appreciated the distal half of the left great toe on plain film x-ray. Also osteo lysis and erosive changes at the distal phalanx consistent with osteomyelitis. Clinically there is a wound at the tuft of the left great toe that probes directly to bone. Patient examined and evaluated, findings and treatment options discussed with patient at length. Wound care and IV antibiotics versus amputation left great toe. Patient is wishing to proceed with contain the infection and help reduce risk of infection ascending into the foot. Given the amount of cellulitis at the left forefoot this will require staged procedure. Planning on left great toe amputation through the metatarsal phalangeal joint today at noon. Will remain n.p.o. We will monitor his soft tissue during this hospitalization and his response to have antibiotics and once soft tissue is improved and quality then we will plan for delayed closure. Coding Level of Care Code Acute Code for [facility] Diagnoses Osteomyelitis of great toe of left foot M86.9 Diabetes mellitus type 2, uncontrolled, with complications Cellulitis of left foot L03.116
--- NOTE | 2022-11-18 10:14 | P.HP_ITS ---
Providers/Chief Complaint Admitting Physician: Michael Chadwick MD, hospitalist Primary Care Provider: Andrzej Clarke DO Chief Complaint: diabetic, black spot on Left big toe History of Present Illness Bola Sheriff is a 52 year old male who presents with concerns of left great toe with lesion, swelling, and drainage. He has been having issues at least since November 07. He believes this started with a blood blister under his distal portion of his toenail. This peeled off, and redness and swelling started. He has not been on any antibiotics. He has known diabetes, with severe neuropathy and reports he cannot feel his feet. He denies any fever, or chills. Podiatry has been consulted as well. Denies any family history of difficulty with anesthesia, bleeding disorder. Reports no exertional chest pain. Denies any exertional symptoms, and can climb several sets of steps without stopping. No history of coronary disease or lung disease. Review of Systems General: Reports: 10 or more systems reviewed and unremarkable except in HPI and below Card: Denies: chest pain Resp: Denies: dyspnea GI: Denies: abdominal pain, hematochezia or melena Medications/Allergies Home Medications Medication Instructions Recorded Confirmed Last Taken Type diabetic supplies, miscellan. #1 ea 08/13/22 11/18/22 Unknown Rx pen needle, diabetic 32 gauge x #100 ea 09/01/22 11/18/22 Unknown Rx 1/4 (TechLITE Pen Needle) pregabalin 50 mg capsule (Lyrica) 50 mg PO BID #60 caps 09/07/22 11/18/22 11/18/22 05:00 Rx aspirin 81 mg tablet,delayed 81 mg PO QAM 11/18/22 11/18/22 11/18/22 05:00 History release atorvastatin 40 mg tablet 40 mg PO BEDTIME 11/18/22 11/18/22 11/17/22 History canagliflozin 300 mg tablet 300 mg PO QAM 11/18/22 11/18/22 11/18/22 05:00 History (Invokana) hydrochlorothiazide 25 mg tablet 25 mg PO QAM 11/18/22 11/18/22 11/18/22 05:00 History insulin glargine 100 unit/mL (3 See Rx Instructions .Route .COMPLEX 11/18/22 11/18/22 11/17/22 History mL) subcutaneous pen (Lantus Solostar U-100 Insulin) lisinopril 20 mg tablet 20 mg PO QAM 11/18/22 11/18/22 11/18/22 History metformin 1,000 mg tablet 1,000 mg PO BID 11/18/22 11/18/22 11/18/22 05:00 History multivitamin 1 tab PO QAM 11/18/22 11/18/22 11/18/22 05:00 History pantoprazole 40 mg tablet,delayed 40 mg PO QAM 11/18/22 11/18/22 11/18/22 05:00 History release tamsulosin 0.4 mg capsule 0.4 mg PO QAM 11/18/22 11/18/22 11/18/22 05:00 History Allergies Allergy/AdvReac Type Severity Reaction Status Date / Time No Known Allergies Allergy Verified 11/18/22 09:08 PFSH Acute PFSH: Medical History (Updated 11/18/22 @ 10:18 by Michael Chadwick MD) BPH (benign prostatic hyperplasia) Diabetes mellitus type 2, uncontrolled, with complications Diabetic nephropathy Diabetic neuropathy GERD (gastroesophageal reflux disease) Helicobacter pylori gastritis Hypercholesterolemia Reducible umbilical hernia Family History (Updated 11/18/22 @ 10:18 by Michael Chadwick MD) Other CAD (coronary artery disease) Cancer Diabetes Hyperlipidemia Hypertension Social History Smoking and tobacco status: never smoked Alcohol intake: never Substance/Drug Use: never Other PFSH information: Supplemental PFSH Information: Denies any surgeries. Vitals/I&O/Wt Last Vital Signs Temp 98.4 F 11/18/22 08:49 Pulse 98 11/18/22 10:00 Resp 16 11/18/22 10:00 BP 139/86 11/18/22 10:00 Pulse Ox 98 11/18/22 10:00 O2 Del Method Room Air 11/18/22 08:49 Weight last 48 hrs Weight 113.398 kg Physical Exam Narrative: General exam no distress HEENT: Atraumatic normocephalic. Oropharynx clear. Neck is supple no lymphadenopathy thyromegaly Cardiovascular regular rate and rhythm without murmur, no S3 or S4 Lungs clear Abdomen is soft positive bowel sounds. No obvious organomegaly exams deferred Extremities no cyanosis or clubbing. Distal left foot with significant skylar thema, culminating in a swollen great toe with peeling skin and slight drainage distally. Skin see findings above Neuro no obvious focal deficits Data 11/18/22 08:57 11/18/22 08:57 Other Labs: X-ray left great toe which I visualize demonstrates evidence of osteomyelitis distal tuft LFTs are normal CRP 60 Calcium and albumin are normal Blood cultures drawn Micro: Microbiology 11/18/22 09:40 Blood Culture - Preliminary Blood SPECIMEN COLLECTED 11/18/22 09:35 Blood Culture - Preliminary Blood SPECIMEN COLLECTED A&P Assessment and plan (1) Osteomyelitis of great toe of left foot: Initiate vancomycin and Zosyn Blood cultures already drawn Podiatry consult. They are considering surgical options and may require delayed closure. CBC tomorrow (2) Cellulitis of left foot: Vancomycin and Zosyn above (3) Diabetes mellitus type 2, uncontrolled, with complications: Initiate sliding scale insulin Hold metformin Continue long-acting insulin Plan Chronic kidney disease, will continue to follow creatinine. BMP tomorrow. Multiple other medical problems as outlined in past medical history Full code Heparin subcutaneous for DVT prophylaxis Attestations Medical Necessity Statement*: Will need greater than 2 midnight stay for evaluation and treatment of cellulitis and osteomyelitis of the left great toe Diagnoses Osteomyelitis of great toe of left foot M86.9 Cellulitis of left foot L03.116 Diabetes mellitus type 2, uncontrolled, with complications Time Spent (min) 40
[2022-11-18] MEDS: piperacillin-tazobactam 3.375 GM in sodium chloride 0.9% (plus) 50 ML IV ×2 (10:55→18:08)
--- NOTE | 2022-11-18 11:59 | ANES.PREANE2 ---
Pre-Anesthetic Assessment Height/Weight: Height 1.83 m Weight 113.398 kg Temp Pulse Resp BP Pulse Ox O2 Del Method 98.5 F 91 18 120/82 98 Room Air 11/18/22 11:35 11/18/22 11:35 11/18/22 11:35 11/18/22 11:35 11/18/22 11:35 11/18/22 11:35 Operation Date: 11/18/22 13:05 Proposed Procedures p Left great toe amputation(Left) - Parker Fofana DPM Familial anesthetic complications: None Was Beta Zia taken within 24 hours: N/A Was Clonidine taken within 24 hours: N/A Last intake: Intake Last Liquid Date 11/18/22 Last Liquid Time 03:00 Last Solid Date 11/18/22 Last Solid Time 03:00 Social No alcohol and No tobacco Exam alert, oriented x 3, clear to auscultation bilaterally and regular rate & rhythm Airway Mallampati: Class III Dentition: chipped CV/HEM Hypertension Metabolic Diabetes Mellitus and Morbid Obesity Anesthetic Plan ASA status: 3 Anesthesia: MAC Risk of > 500 ml blood loss (7ml/kg in children): No Medications/Allergies Home Medications Medication Instructions Recorded Confirmed Last Taken Type diabetic supplies, miscellan. #1 ea 08/13/22 11/18/22 Unknown Rx pen needle, diabetic 32 gauge x #100 ea 09/01/22 11/18/22 Unknown Rx 1/4 (TechLITE Pen Needle) pregabalin 50 mg capsule (Lyrica) 50 mg PO BID #60 caps 09/07/22 11/18/22 11/18/22 05:00 Rx aspirin 81 mg tablet,delayed 81 mg PO QAM 11/18/22 11/18/22 11/18/22 05:00 History release atorvastatin 40 mg tablet 40 mg PO BEDTIME 11/18/22 11/18/22 11/17/22 History canagliflozin 300 mg tablet 300 mg PO QAM 11/18/22 11/18/22 11/18/22 05:00 History (Invokana) hydrochlorothiazide 25 mg tablet 25 mg PO QAM 11/18/22 11/18/22 11/18/22 05:00 History insulin glargine 100 unit/mL (3 See Rx Instructions .Route .COMPLEX 11/18/22 11/18/22 11/17/22 History mL) subcutaneous pen (Lantus Solostar U-100 Insulin) lisinopril 20 mg tablet 20 mg PO QAM 11/18/22 11/18/22 11/18/22 History metformin 1,000 mg tablet 1,000 mg PO BID 11/18/22 11/18/22 11/18/22 05:00 History multivitamin 1 tab PO QAM 11/18/22 11/18/22 11/18/22 05:00 History pantoprazole 40 mg tablet,delayed 40 mg PO QAM 11/18/22 11/18/22 11/18/22 05:00 History release tamsulosin 0.4 mg capsule 0.4 mg PO QAM 11/18/22 11/18/22 11/18/22 05:00 History Allergies Allergy/AdvReac Type Severity Reaction Status Date / Time No Known Allergies Allergy Verified 11/18/22 09:08 Current Medications Generic Name Dose Route Start Last Admin Trade Name Freq PRN Reason Stop Dose Admin Piperacillin Sod/Tazobactam 50 mls @ 12.5 mls/hr 11/18/22 11:00 11/18/22 10:55 Sod 3.375 gm/ Sodium Chloride IV 12.5 mls/hr Q8H DIANE Administration Protocol As Directed [facility] Anesthesia Medical History (Updated 11/18/22 @ 10:18 by Michael Chadwick MD) BPH (benign prostatic hyperplasia) Diabetes mellitus type 2, uncontrolled, with complications Diabetic nephropathy Diabetic neuropathy GERD (gastroesophageal reflux disease) Helicobacter pylori gastritis Hypercholesterolemia Reducible umbilical hernia Family History (Updated 11/18/22 @ 10:18 by Michael Chadwick MD) Other CAD (coronary artery disease) Cancer Diabetes Hyperlipidemia Hypertension Social History Smoking and tobacco status: never smoked Alcohol intake: never Substance/Drug Use: never Supplemental [facility] Information Denies any surgeries. Data Anesthesia 11/18/22 08:57 11/18/22 08:57 Short CBC 11/18/22 Range/Units 08:57 WBC 9.5 (4.0-10.0) 10^3/uL Hgb 11.5 L (11.7-16.6) g/dL Hct 35.9 L (42.0-52.0) % MCV 82.5 (80-94) fl Plt Count 421 H (130-400) 10^3/cmm Neut % (Auto) 65.5 % Neut # (Auto) 6.19 (1.8-7.7) 10^3/uL BMP 11/18/22 08:57 Sodium 130 L Potassium 3.9 Chloride 95 L Carbon Dioxide 21 L BUN 21 H Creatinine 1.4 H Glucose 169 H Calcium 9.6 Liver Function 11/18/22 Range/Units 08:57 Total Bilirubin 0.2 (0.15-1.2) mg/dL AST 11 (0-40) U/L ALT 16 (0-41) U/L Alkaline Phosphatase 58 (40-130) U/L Albumin 4.2 (3.5-5.2) g/dL Coags 11/18/22 08:57 C-Reactive Protein 60.2 H Microbiology 11/18/22 09:40 Blood Culture - Preliminary Blood SPECIMEN COLLECTED 11/18/22 09:35 Blood Culture - Preliminary Blood SPECIMEN COLLECTED Cardiac Studies: No Data to Display
[2022-11-18] MEDS: sodium chloride 0.9% 1,000 ML 30 ML IV (12:02)
--- NOTE | 2022-11-18 12:56 | W.PM.OPSUD ---
Surgery/Procedure H&P Update DATE OF PROCEDURE: November 18, 2022 DATE H&P PERFORMED: 11/18/22 CHANGES TO PREVIOUS DOCUMENTATION: None PLANNED PROCEDURE: Operation Date: 11/18/22 13:05 Proposed Procedures p Left great toe amputation(Left) - Parker Fofana DPM
--- NOTE | 2022-11-18 13:30 | P.OP_ITS ---
Operative Report Date of procedure: November 18, 2022 Pre-op diagnosis: Gangrene left great toe Post-op diagnosis: Gangrene left great toe Procedure done: Left great toe amputation. CPT code 10393 Implants: None Specimens removed/disposition: Bone distal phalanx left great toe sent to microbiology for Gram stain, culture and sensitivity. Pathology: Left great toe sent to pathology for permanent Surgeon: Parker Fofana D.P.M. Sandblaster Stone: Fara Estimated blood loss: 10 4 IV fluids: 0 Urine output: 0 Complications: None Findings: Devitalized soft tissue and bone with soft tissue of eczema distal phalanx left great toe. Brief History: 52-year-old insulin-dependent diabetic male presents with gangrene to the left great toe.? Soft tissue emphysema appreciated the distal half of the left great toe on plain film x-ray.? Also osteo lysis and erosive changes at the distal phalanx consistent with osteomyelitis.? Clinically there is a wound at the tuft of the left great toe that probes directly to bone. Patient examined and evaluated, findings and treatment options discussed with patient at length.? Wound care and IV antibiotics versus amputation left great toe.? Patient is wishing to proceed with contain the infection and help reduce risk of infection ascending into the foot.? Given the amount of cellulitis at the left forefoot this will require staged procedure.? Planning on left great toe amputation through the metatarsal phalangeal joint today at noon.? Will remain n.p.o.? We will monitor his soft tissue during this hospitalization and his response to have antibiotics and once soft tissue is improved and quality then we will plan for delayed closure. Procedure: Under mild sedation the patient was brought to the operating room and remained on the gurney in supine position. A timeout was performed. Anesthesia was then administered by the anesthesia service. Local anesthesia injected by myself consisting of 30 cc of 0.5% Marcaine plain in a left male block fashion. Well- padded pneumatic tourniquet was applied to the left ankle. The left lower extremity was scrubbed, prepped and draped utilizing normal aseptic technique. No Esmarch bandage was utilized. The left foot was elevated and tourniquet inflated to 250 mmHg. Tissue was directed to the left great toe, full-thickness wound exposed to bone at the distal tuft with purulence and soft tissue crepitus was appreciated. A full-thickness incision was performed down to bone circumferentially and a fishmouth incision technique encompassing the left first metatarsophalangeal joint and the left great toe was disarticulated from the metatarsal phalangeal joint maintaining dorsal and plantar skin flaps. This was passed for operative field. Bone specimen from the distal phalanx sent to microbiology for Gram stain, culture and sensitivity. Remaining toe sent to pathology for gross anatomic review. The incision was irrigated with copious amounts of sterile saline solution. All bleeders were ligated and cauterized as necessary. The head of the first metatarsal was bright white and appropriate density and color without signs of devitalized tissue. Cartilage was healthy appearing. No tracking of purulence at the extensor or flexor tendons. Further irrigation was performed followed saline wet-to-dry dressing consisting of saline, 4 x 4 gauze, Kerlix and Mane wrap. There was impressive cellulitis at the left medial forefoot that will require clinical improvement, likely further debridement with delayed closure once soft tissue improves during this hospital course. Patient tolerated the procedure well and was transferred to the PACU with vital signs stable and vascular status intact. He will be transferred to the floor to continue continue medical management and antibiotic therapies. Podiatry will follow.
--- NOTE | 2022-11-18 14:25 | ANE.PACU2 ---
Inpatient post-anesthesia follow up: Airway intact: Yes Vital signs: Temperature 97.8 F Pulse Rate 93 Respiratory Rate 18 Blood Pressure 94/69 Pulse Oximetry 97 Oxygen Delivery Me thod Room Air Oxygen Flow Rate Fraction of Inspir ed Oxygen Hydration adequate: Yes Nausea and vomiting: Yes Pain level: 1 Mental status: Baseline
[2022-11-18 15:24] LABS: Glucose Point of Care 99 mg/dL (70-110)
[2022-11-18] MEDS: sodium chloride 0.9% 1,000 ML 75 ML IV (15:32)
[2022-11-18 16:47] LABS: Glucose Point of Care 131 mg/dL (70-110)
[2022-11-18] MEDS: heparin 5,000 unit/mL INJ 1 mL 5000 UNIT SUBCUT (18:07)
[2022-11-18] MEDS: pregabalin 50 mg Capsule PO (18:07)
[2022-11-18] MEDS: acetaminophen 325 mg Tablet 650 MG PO (19:45)
[2022-11-18 20:42] LABS: Glucose Point of Care 220 mg/dL (70-110)
[2022-11-18] MEDS: atorvastatin 40 mg Tablet PO ×2 (20:47→20:48)
[2022-11-18] MEDS: insulin glargine 100 units/1 mL 10 UNIT SUBCUT (20:49)
[2022-11-18] MEDS: insulin lispro 100 unit/1 mL SUBCUT (20:49)
[2022-11-18] MEDS: vancomycin 1,500 MG/300 ML PIGGYBACK 200 MG IV (22:18)
[2022-11-19] VITALS (7 sets, daily range): BP systolic 106–118; BP diastolic 68–76; PULSE 80–98; RESP 15–18; TEMP 36.3–37; O2SAT 92–98
[2022-11-19] MEDS: piperacillin-tazobactam 3.375 GM in sodium chloride 0.9% (plus) 50 ML IV ×3 (03:49→18:36)
[2022-11-19] MEDS: tamsulosin 0.4 mg Capsule PO (05:48)
[2022-11-19] MEDS: pantoprazole DR 40 mg Tablet PO (05:48)
[2022-11-19] MEDS: sodium chloride 0.9% 1,000 ML 75 ML IV (05:48)
[2022-11-19] MEDS: lisinopril 20 mg Tablet PO (05:48)
[2022-11-19] MEDS: aspirin 81 mg EC Tablet PO (05:48)
[2022-11-19] MEDS: heparin 5,000 unit/mL INJ 1 mL 5000 UNIT SUBCUT ×2 (06:16→18:37)
[2022-11-19 06:25] LABS: Basophils % 0.2 %; Eosinophils # 0.1 10^3/uL (0.0-0.8); Eosinophils % 1.5 %; Hemoglobin 11.5 g/dL (11.7-16.6); Lymphocytes # 1.6 10^3/uL (0.8-4.8); Lymphocytes % 19.4 %; Mean Corpuscular HGB Conc 31.9 g/dL (30.0-36.0); Mean Corpuscular Hemoglobin 26.7 pg (28.0-34.0); Mean Corpuscular Volume 83.5 fl (80-94); Mean Platelet Volume 9.4 fL (7.4-10.4); Monocytes # 0.6 10^3/uL (0.2-0.9); Monocytes % 7.1 %; Neutrophils # 5.85 10^3/uL (1.8-7.7); Neutrophils % 71.6 %; Nucleated Red Blood Cells % 0 %; Platelet Count 419 10^3/cmm (130-400); Red Blood Count 4.31 10^6/uL (4.1-5.3); Red Cell Distribution Width 15.5 % (12.1-15.1); White Blood Count 8.2 10^3/uL (4.0-10.0)
[2022-11-19 06:39] LABS: Glucose Point of Care 260 mg/dL (70-110)
[2022-11-19 06:47] LABS: Alanine Aminotransferase 16 U/L (0-41); Albumin Level 3.9 g/dL (3.5-5.2); Alkaline Phosphatase 53 U/L (40-130); Anion Gap 15.5 (5-19); Aspartate Amino Transferase 11 U/L (0-40); Blood Urea Nitrogen 15 mg/dL (6-20); Calcium 8.9 mg/dL (8.5-10.5); Carbon Dioxide 21 mmol/L (22-29); Chloride 99 mmol/L (98-107); Globulin 3.4 g/dL (1.3-4.6); Glomerular Filtration Rate 101.9 mL/min (90-130); Glucose 115 mg/dL (65-115); Osmolality Calculated 274 mOsm/kg (285-295); Potassium 4.5 mmol/L (3.5-5.1); Sodium 131 mmol/L (136-145); Total Bilirubin 0.4 mg/dL (0.15-1.2); Total Protein 7.3 g/dL (6.6-8.7)
--- NOTE | 2022-11-19 06:54 | PM.PN ---
Subjective Subjective: Patient seen bedside this morning for dressing change. Denies any acute events overnight. Endorsing phantom pain of the left great. Patient denies any subjective nausea, vomiting, fever, chills, shortness of breath or chest pain. Vitals/I&O/Wt Last Vital Signs Temp 97.3 F L 11/19/22 04:39 Pulse 98 11/19/22 04:39 Resp 16 11/19/22 04:39 BP 118/76 11/19/22 04:39 Pulse Ox 96 11/19/22 04:39 O2 Del Method Room Air 11/18/22 17:55 11/18/22 11/18/22 11/19/22 14:59 22:59 06:59 Intake Total 358 / 358 700 / 1058 1450 / 2508 Output Total 950 / 960 850 / 1810 Balance 348 / 348 -250 / 98 600 / 698 Weight last 48 hrs Weight 250 lb Physical Exam Narrative: GENERAL: Patient is alert and oriented ?3 and in no acute distress. The following is a focused bilateral lower extremity exam. VASCULAR: Dorsalis pedis palpable bilaterally. Posterior tibial arteries palpable. Capillary refill time less than 3 seconds to the right great toe. Calf is supple and nontender proximally and distally. Decreased pedal hair growth. Improved edema of the left forefoot. NEUROLOGICAL: Protective sensation intact 0/10 sites, tested with [place] monofilament to bilateral feet. DERMATOLOGICAL: Amputation site shows stable interval of receding cellulitis. No active bleeding. No purulence expressed. MUSCULOSKELETAL: Status post left great toe amputation. Data 11/19/22 05:53 11/19/22 05:53 Micro: Microbiology 11/18/22 09:40 Blood Culture - Preliminary Blood SPECIMEN COLLECTED 11/18/22 09:35 Blood Culture - Preliminary Blood SPECIMEN COLLECTED A&P Assessment and plan (1) Osteomyelitis of great toe of left foot: (2) Diabetes mellitus type 2, uncontrolled, with complications: (3) Cellulitis of left foot: Plan 52-year-old insulin-dependent diabetic male presents with gangrene to the left great toe. Soft tissue emphysema appreciated the distal half of the left great toe on plain film x-ray. Also osteo lysis and erosive changes at the distal phalanx consistent with osteomyelitis. Clinically there is a wound at the tuft of the left great toe that probes directly to bone. Left great toe amputation date of operation 11/18/2022 Receiving empiric IV antibiotics with improvement, subsiding cellulitis of the left foot appreciated clinically at today's visit. Plan for delayed closure 11/20/2022 Ordered OrthoWedge heel shoe left foot. Elevate left foot while resting Continue anticoagulants Level of amputation curative of osteomyelitis. Planning for p.o. antibiotics for soft tissue 2 weeks at discharge. Will follow-up in podiatry clinic next week. Attestations Medical Necessity Statement*: Gangrene left great toe Coding Level of Care Code Acute Code for [facility] Fwd Diagnoses Osteomyelitis of great toe of left foot M86.9 Diabetes mellitus type 2, uncontrolled, with complications Cellulitis of left foot L03.116
--- NOTE | 2022-11-19 08:15 | PM.PN ---
Subjective Subjective: No complaints this morning. Patient underwent toe amputation yesterday. Some discomfort overnight. Distal bone was sent for pathology. Plans are for delayed closure. I suspect this will be performed tomorrow, but awaiting plans of podiatry. Having some issues with insomnia. Medications: Reviewed: Yes Vitals/I&O/Wt Last Vital Signs Temp 97.3 F L 11/19/22 04:39 Pulse 98 11/19/22 04:39 Resp 16 11/19/22 04:39 BP 118/76 11/19/22 04:39 Pulse Ox 96 11/19/22 04:39 O2 Del Method Room Air 11/18/22 17:55 11/18/22 11/19/22 11/19/22 22:59 06:59 14:59 Intake Total 700 / 1058 1450 / 2508 Output Total 950 / 960 850 / 1810 500 / 500 Balance -250 / 98 600 / 698 -500 / -500 Weight last 48 hrs Weight 113.398 kg Physical Exam Narrative: General exam no distress Neck is supple no lymphadenopathy thyromegaly Cardiovascular regular rate and rhythm without murmur, no S3 or S4 Lungs clear Abdomen is soft positive bowel sounds. No obvious organomegaly Extremities no cyanosis or clubbing. Trace edema bilaterally. Dressing left foot clean and dry Data 11/19/22 05:53 11/19/22 05:53 Micro: Microbiology 11/18/22 09:40 Blood Culture - Preliminary Blood SPECIMEN COLLECTED 11/18/22 09:35 Blood Culture - Preliminary Blood SPECIMEN COLLECTED A&P Assessment and plan (1) Osteomyelitis of great toe of left foot: Continue vancomycin and Zosyn Blood cultures already drawn, results pending Appreciate podiatry consult White blood cell count is improved (2) Cellulitis of left foot: Vancomycin and Zosyn above (3) Diabetes mellitus type 2, uncontrolled, with complications: Continue sliding scale insulin Hold metformin Increase Lantus to 10 units twice daily Plan Chronic kidney disease, will continue to follow creatinine. Creatinine improved today Insomnia, add trazodone as needed Multiple other medical problems as outlined in past medical history Full code Heparin subcutaneous for DVT prophylaxis Attestations Medical Necessity Statement*: Needs continued hospital stay and for definitive care, closure of surgical wound secondary to left great toe osteomyelitis status post amputation. Diagnoses Osteomyelitis of great toe of left foot M86.9 Cellulitis of left foot L03.116 Diabetes mellitus type 2, uncontrolled, with complications Time Spent (min) 22
[2022-11-19] MEDS: insulin lispro 100 unit/1 mL SUBCUT ×4 (08:39→21:34)
[2022-11-19] MEDS: pregabalin 50 mg Capsule PO ×2 (08:39→18:07)
--- NOTE | 2022-11-19 10:07 | PC.CHAP ---
Pastoral Care Encounter/Spiritual Assessment Type of Contact [] Declined on call visit [] Patient/Family/Request visit [] Outpatient visit [] Follow-up visit [] Physician referral [] Code/Alert [x] Routine visit [] Staff referral [] Actively dying [] Patient sleeping [] Family support [] [] Out of room [] Palliative care [] [x] Receiving care in room [] Pre-surgical visit [] Trauma [] Long length of stay [] ICU visit [] Other: Relational/Emotional Strength [x] Patient feels connected with others/family/visitors/staff [] Distress [] Loneliness/isolation [] Abandonment Spirituality of Patient [x] Person of [place] [] Attends Yazidism of their [place] [x] Believes in Prayer [] Reads Bible or Jain materials [] There are Spiritual issues to be addressed Lime Spreader Interventions [x] Prayer [x] Active listening [x] Non-anxious presence [x] Spiritual/emotional support [] Crisis/trauma care [x] Spiritual counseling [] Bereavement support [] Provided bereavement packet [] Provided Bible/devotional materials [] Provided toy/stuffed animal, coloring book to patient or family member [] Provided Communion [] Anointing/[place] [] Salvation [x] Completed spiritual assessment [] Other: Impact on Illness or Injury [] Angry [] Fearful [] Anxious [] Often cries [] Exhaustion [] Unable to work [] Unable to attend congregational [] Unable to walk/stand [] Unable to read [] Unable to drive [] Unable to eat/drink [] Unable to sleep [] Unable to be with family [] Patient intubated [] Other: Summary foot toe suger dybedes some swelling in leg not sure when he well go home Time spent with patient 10 mins
[2022-11-19] MEDS: acetaminophen 325 mg Tablet 650 MG PO ×2 (10:49→18:09)
[2022-11-19] MEDS: vancomycin 1,500 MG/300 ML PIGGYBACK 200 MG IV ×2 (10:54→21:02)
[2022-11-19 11:26] LABS: Glucose Point of Care 196 mg/dL (70-110)
[2022-11-19 16:54] LABS: Glucose Point of Care 170 mg/dL (70-110)
[2022-11-19] MEDS: morphine 4 mg/mL SDV 1 mL 2 MG IVP (20:10)
[2022-11-19 20:32] LABS: Glucose Point of Care 232 mg/dL (70-110)
[2022-11-19] MEDS: atorvastatin 40 mg Tablet PO (20:58)
[2022-11-19] MEDS: trazodone 100 mg Tablet PO (20:58)
[2022-11-19] MEDS: insulin glargine 100 units/1 mL 5 UNIT SUBCUT (21:32)
--- NOTE | 2022-11-19 21:45 | PC.NURSE ---
PM INSULIN DOSE Given 1/2 of scheduled Lantus insulin tonight per protocol for surgery in the am
[2022-11-20] VITALS (11 sets, daily range): BP systolic 96–133; BP diastolic 67–83; PULSE 86–116; RESP 15–20; TEMP 36.4–37.3; O2SAT 95–97
[2022-11-20] MEDS: piperacillin-tazobactam 3.375 GM in sodium chloride 0.9% (plus) 50 ML IV ×2 (02:32→10:03)
[2022-11-20] MEDS: vancomycin 1,500 MG/300 ML PIGGYBACK 200 MG IV (04:48)
[2022-11-20] MEDS: acetaminophen 325 mg Tablet 650 MG PO (04:54)
[2022-11-20 07:10] LABS: Glucose Point of Care 133 mg/dL (70-110)
[2022-11-20] MEDS: pregabalin 50 mg Capsule PO (10:03)
[2022-11-20 10:37] LABS: Glucose Point of Care 145 mg/dL (70-110)
--- NOTE | 2022-11-20 10:46 | ANES.PAUD2 ---
Pre-Anesthetic Update Pre-Anesthetic Assessment: Date of Surgery/Procedure: 11/20/22 Proposed Procedure: Operation Date: 11/18/22 13:05 Proposed Procedures p Left great toe amputation(Left) - Parker Fofana DPM Operation Date: 11/20/22 11:10 Proposed Procedures p Delayed closure left foot(Left) - Parker Fofana DPM Any changes to Pre-Anesthetic Assessment?: No Last Intake: Intake Last Liquid Date 11/19/22 Last Liquid Time 23:45 Last Solid Date 11/19/22 Last Solid Time 17:00 Labs Last 48hrs: Short CBC 11/19/22 Range/Units 05:53 WBC 8.2 (4.0-10.0) 10^3/ uL Hgb 11.5 L (11.7-16.6) g/dL Hct 36.0 L (42.0-52.0) % MCV 83.5 (80-94) fl Plt Count 419 H (130-400) 10^3/c mm Neut % (Auto) 71.6 % Neut # (Auto) 5.85 (1.8-7.7) 10^3/u L BMP 11/19/22 05:53 Sodium 131 L Potassium 4.5 Chloride 99 Carbon Dioxide 21 L BUN 15 Creatinine 0.8 Glucose 115 Calcium 8.9 Liver Function 11/19/22 Range/Units 05:53 Total Bilirubin 0.4 (0.15-1.2) mg/dL AST 11 (0-40) U/L ALT 16 (0-41) U/L Alkaline Phosphata se 53 (40-130) U/L Albumin 3.9 (3.5-5.2) g/dL Vitals: Temperature 97.6 F 11/20/22 10:32 Temperature Source Temporal Artery S can 11/20/22 10:32 Pulse Rate 93 11/20/22 10:32 Pulse Rhythm Regular 11/18/22 08:49 Respiratory Rate 16 11/20/22 10:32 Respiratory Effort Spontaneous, Non- Labored 11/19/22 20:10 Respiratory Depth Normal 11/19/22 20:10 Respiratory Patter n Normal 11/18/22 11:18 Blood Pressure 129/77 11/20/22 10:32 Blood Pressure Susanna n 94 11/20/22 10:32 Blood Pressure Pos ition Semi Fowlers 11/18/22 08:49 Pulse Oximetry 95 11/20/22 10:32 Oxygen Delivery Me thod Room Air 11/20/22 10:32 Sepsis Recent Feve r Within 48 Hours No 11/18/22 08:49 Sepsis New/Unexpla ined Change in [place] Status No 11/18/22 08:49 Exam: Pre-Anes Outpt Exam: alert, oriented x 3, clear to auscultation bilaterally and regular rate & rhythm Cardiac Studies: No Data to Display
[2022-11-20] MEDS: sodium chloride 0.9% 1,000 ML 30 ML IV (10:58)
--- NOTE | 2022-11-20 11:26 | W.PM.OPSUD ---
Surgery/Procedure H&P Update DATE OF PROCEDURE: November 20, 2022 DATE H&P PERFORMED: 11/18/22 CHANGES TO PREVIOUS DOCUMENTATION: None PLANNED PROCEDURE: Operation Date: 11/18/22 13:05 Proposed Procedures p Left great toe amputation(Left) - Parker Fofana DPM Operation Date: 11/20/22 11:10 Proposed Procedures p Delayed closure left foot(Left) - Parker Fofana DPM
--- NOTE | 2022-11-20 11:33 | P.OP_ITS ---
Operative Report Date of procedure: November 20, 2022 Pre-op diagnosis: Gangrene left great toe Post-op diagnosis: Gangrene left great toe Procedure done: Primary delayed closure left foot Implants: 3-0 Vicryl, 4-0 nylon Specimens removed/disposition: None Pathology: None Surgeon: Parker Fofana D.P.M. Heat Treatment Technician: Donya Estimated blood loss: 1 6 IV fluids: 0 Urine output: 0 Complications: None Brief History: Patient presents for primary delayed closure status post left great toe amputation secondary to gangrene. Procedure: Patient under mild sedation was brought to the operating room and remained on the gurney in supine position, timeout was performed. Anesthesia was then administered by the anesthesia service. Local anesthesia was injected by myself consisting of 20 cc of 0.5% Marcaine plain in the left male block fashion. Well-padded pneumatic tourniquet was applied to the left ankle. The left lower extremity was scrubbed, prepped and draped utilizing normal aseptic technique. No Esmarch bandage was utilized. Tourniquet was inflated to 250 mmHg. Full-thickness wound exposed bone appreciated at the distal medial aspect of the left forefoot. Sharp debridement was performed excisionally in nature with p ickups and a #15 blade of all devitalized tissue of epidermis, dermis, subcutaneous tissue, myofascial layer and periosteum. The wound bed was then thoroughly irrigated with a sterile saline solution. All bleeders were ligated and cauterized as necessary. Next, to facilitate delayed primary closure, the wound edges were approximated with non-absorbable sutures in an interrupted fashion. Care was taken to ensure proper alignment of the wound edges for optimal cosmetic and functional outcomes. The sutures were placed at regular intervals along the wound, taking care not to overly tension or distort the surrounding tissues. Deep soft tissue was reapproximated utilizing 3-0 Vicryl. Skin with 4-0 nylon. Following wound edge approximation, a sterile dressing was applied over the wound site. The tourniquet was deflated, and adequate perfusion to the foot was confirmed. The patient tolerated the procedure well, and there were no immediate complications. Patient tolerated the procedure well and was transferred to the PACU with vital signs stable and vascular status intact. Following a period of postoperative monitoring he will be transferred back to the floor. Plans for discharge on oral biotics today. Will be following up in podiatry clinic next week. Patient will be contacted as to date and time. He was advised to remain nonweightbearing to the left lower extremity. He has a Darco OrthoWedge heel to use for transfers heel touch only.
--- NOTE | 2022-11-20 12:20 | PC.NURSE ---
Pt arrived to PACU, awake, resting comfortably, dressing to left foot C/D/I, left toes p/w/d, cap refill < 3 seconds, able to wiggle toes. FOB elevated.
[2022-11-20 12:24] LABS: Glucose Point of Care 110 mg/dL (70-110)
--- NOTE | 2022-11-20 13:00 | ANE.PACU2 ---
Inpatient post-anesthesia follow up: Airway intact: Yes Vital signs: Temperature 97.8 F Pulse Rate 116 Respiratory Rate 16 Blood Pressure 133/80 Pulse Oximetry 96 Oxygen Delivery Me thod Room Air Oxygen Flow Rate Fraction of Inspir ed Oxygen Hydration adequate: Yes Nausea and vomiting: No Pain level: 1 Mental status: Baseline
--- NOTE | 2022-11-20 13:08 | P.DS_ITS ---
Discharge Providers Date of Admission: 11/18/22 10:36 Date of Discharge: November 20, 2022 Attending Provider at Admission: Michael Chadwick MD Attending Provider at Discharge: Michael Chadwick MD Primary Care Provider: Andrzej Clarke DO Diagnoses at Discharge Discharge Diagnosis (1) Osteomyelitis of great toe of left foot: Status: Acute (2) Diabetes mellitus type 2, uncontrolled, with complications: Status: Acute (3) Cellulitis of left foot: Status: Acute Reason for Visit Reason for Visit: diabetic, black spot on Left big toe Hospital Course Hospital Course Bola is a 52-year-old male diabetic who presented to the hospital with concerns of left great toe swelling and draining. He was found to have osteomyelitis of the left great toe. Podiatry was consulted and they performed a left great toe amputation the following day, on November 18. He also had significant cellulitis surrounding the area and was placed on antibiotics preoperatively, consisting of vancomycin and Zosyn. During his hospital course cellulitis improved significantly. He had delayed closure of the amputation site on November 20. He was doing very well and it was thought he could be discharged at that time on oral antibiotics and have close follow-up with podiatry and his primary care provider. Patient was given opportunity to ask questions, and agreed with the plan. Physical Exam Narrative: General exam no distress Cardiovascular regular in rhythm Lungs clear Abdomen soft Extremity with dressing Discharge Data Studies Completed and Pending Completed Studies During Hospitalization Category Date Time Status XR toe LT min 2V [id number] Stat Exams 11/18/22 08:40 Completed Pending at discharge Category Date Time Status Anaerobic Culture Routine Lab 11/18/22 13:20 Received Blood Culture Stat Lab 11/18/22 09:40 Results Tissue Culture and Gram Stain Routine Lab 11/18/22 13:20 Received Vancomycin Trough Timed Lab 11/20/22 20:00 Ordered Pathology: Surgical [PTH] Routine Pth 11/18/22 13:31 Received Radiology Impressions Toe X-Ray 11/18/22 08:40 IMPRESSION: Left great toe fracture as above. Laboratory Results WBC 8.2 10^3/uL (4.0-10.0) 11/19/22 05:53 RBC 4.31 10^6/uL (4.1-5.3) 11/19/22 05:53 Hgb 11.5 g/dL (11.7-16.6) L 11/19/22 05:53 Hct 36.0 % (42.0-52.0) L 11/19/22 05:53 MCV 83.5 fl (80-94) 11/19/22 05:53 MCH 26.7 pg (28.0-34.0) L 11/19/22 05:53 MCHC 31.9 g/dL (30.0-36.0) 11/19/22 05:53 RDW 15.5 % (12.1-15.1) H 11/19/22 05:53 Plt Count 419 10^3/cmm (130-400) H 11/19/22 05:53 MPV 9.4 fL (7.4-10.4) 11/19/22 05:53 Neut % (Auto) 71.6 % 11/19/22 05:53 Lymph % (Auto) 19.4 % 11/19/22 05:53 Boundary % (Auto) 7.1 % 11/19/22 05:53 Eos % (Auto) 1.5 % 11/19/22 05:53 Baso % (Auto) 0.2 % 11/19/22 05:53 Neut # (Auto) 5.85 10^3/uL (1.8-7.7) 11/19/22 05:53 Lymph # (Auto) 1.6 10^3/uL (0.8-4.8) 11/19/22 05:53 Boundary # (Auto) 0.6 10^3/uL (0.2-0.9) 11/19/22 05:53 Eos # (Auto) 0.1 10^3/uL (0.0-0.8) 11/19/22 05:53 Baso # (Auto) 0.0 10^3/uL (0.0-0.1) 11/19/22 05:53 Nucleated RBC % (auto) 0 % 11/19/22 05:53 Nucleated RBCs # 0.0 /100WBC 11/19/22 05:53 Sodium 131 mmol/L (136-145) L 11/19/22 05:53 Potassium 4.5 mmol/L (3.5-5.1) 11/19/22 05:53 Chloride 99 mmol/L (98-107) 11/19/22 05:53 Carbon Dioxide 21 mmol/L (22-29) L 11/19/22 05:53 Anion Gap 15.5 (5-19) 11/19/22 05:53 BUN 15 mg/dL (6-20) 11/19/22 05:53 Creatinine 0.8 mg/dL (0.7-1.2) 11/19/22 05:53 GFR Calculation 101.9 mL/min (90-130) 11/19/22 05:53 Glucose 115 mg/dL (65-115) 11/19/22 05:53 POC Glucose 110 mg/dL (70-110) 11/20/22 12:22 Calculated Osmolality 274 mOsm/kg (285-295) L 11/19/22 05:53 Calcium 8.9 mg/dL (8.5-10.5) 11/19/22 05:53 Total Bilirubin 0.4 mg/dL (0.15-1.2) 11/19/22 05:53 AST 11 U/L (0-40) 11/19/22 05:53 ALT 16 U/L (0-41) 11/19/22 05:53 Alkaline Phosphatase 53 U/L (40-130) 11/19/22 05:53 C-Reactive Protein 60.2 mg/L (0.0-4.9) H 11/18/22 08:57 Total Protein 7.3 g/dL (6.6-8.7) 11/19/22 05:53 Albumin 3.9 g/dL (3.5-5.2) 11/19/22 05:53 Globulin 3.4 g/dL (1.3-4.6) 11/19/22 05:53 Vitals Last Vital Signs Temp 97.9 F 11/20/22 12:35 Pulse 91 11/20/22 12:35 Resp 18 11/20/22 12:35 BP 120/82 11/20/22 12:35 Pulse Ox 96 11/20/22 12:35 O2 Del Method Room Air 11/20/22 12:35 Discharge Plan Discharge Patient Disposition: Home Condition: Stable Prescriptions: New oxycodone 5 mg capsule 5 mg PO Q6H PRN (Reason: pain) Qty: 10 0RF amoxicillin-pot clavulanate 875-125 mg tablet 1 tab PO BID Qty: 20 0RF doxycycline monohydrate 100 mg capsule 100 mg PO BID 10 Days Qty: 20 0RF Continued (DME) diabetic supplies, miscellan. Misc See Rx Instructions .Route Qty: 1 5RF Rx Instructions: Please include all necessary supplies including lancets, testing strips, solution, pin needles. Check sugars daily. (DME) pen needle, diabetic [TechLITE Pen Needle] 32 gauge x 1/4 needle See Rx Instructions .Route Qty: 100 0RF Rx Instructions: As directed pregabalin [Lyrica] 50 mg capsule 50 mg PO BID Qty: 60 2RF multivitamin Tablet 1 tab PO QAM Aspir-81 81 mg Tablet,Delayed Release (Dr/Ec) 81 mg PO QAM pantoprazole 40 mg tablet,delayed release (DR/EC) 40 mg PO QAM atorvastatin 40 mg tablet 40 mg PO BEDTIME lisinopril 20 mg tablet 20 mg PO QAM tamsulosin 0.4 mg capsule 0.4 mg PO QAM metformin 1,000 mg tablet 1,000 mg PO BID hydrochlorothiazide 25 mg tablet 25 mg PO QAM Lantus Solostar U-100 Insulin 100 unit/mL (3 mL) insulin pen See Rx Instructions .ROUTE .COMPLEX Rx Instructions: 11 units subcutaneously in the am and 14 units at bedtime Invokana 300 mg tablet 300 mg PO QAM Discharge Orders: Discharge Order (Routine); Ordered 11/20/22 Ordered By: Michael Chadwick Referrals: Andrzej Clarke DO [Primary Care Provider] - 4-7 days Parker Fofana DPM [Physician] - 1 week Discharge Diet: Diabetic Discharge Activity: Increase activity as tolerated and Limit activity as instructed Patient Instructions: Opioid Safety Activity Restrictions/Additional Instructions: Postoperative instructions as per Dr. Fofana Follow-up in [address] Fofana Follow-up with primary care provider 4 to 7 days Return for any concerns Take medicine as prescribed Discharge Attestations Time Spent in Discharge Care*: greater than 30 min Quality Metrics Clinical Quality Measures [ No reported AMI, CVA or VTE this stay] Coding Level of Care Code 52145 Total time (in minutes) for Discharge: 34 Diagnoses Osteomyelitis of great toe of left foot M86.9 Diabetes mellitus type 2, uncontrolled, with complications Cellulitis of left foot L03.116
--- NOTE | 2022-11-20 15:09 | PC.SOCIAL ---
CM called and set up a medicaid ride for patient, Ref #[id number]
--- NOTE | 2022-11-20 15:46 | PC.SOCIAL ---
[facility] called and states that patient's insurance doesn't cover Doxycline Monohydrate but does cover Doxycline Hyclate. CM obtained order from Dr. Chadwick to make the change. CM updated [facility] with [facility].
== END 2022-11-20 16:00 | disposition home or self-care (01) | DRG 256 ==
LOC: ER 10:17 → MEDSURG 10:36
PROVIDERS: Podiatrist Foot & Ankle Surgery; Admitting Provider Internal Medicine; Emergency Provider Family Medicine; PCP Family Medicine; Visit Provider Internal Medicine
PROC: 0Y6Q0Z0 Detachment at Left 1st Toe, Complete, Open Approach (ICD-10-PCS; principal; 2022-11-18 12:45)
PROC: 0JQR0ZZ Repair Left Foot Subcutaneous Tissue and Fascia, Open Approach (ICD-10-PCS; CPT 13160; principal; 2022-11-20 11:00)
DX: E11.52 Type 2 diabetes mellitus with diabetic peripheral angiopathy with gangrene (principal); I96 Gangrene, not elsewhere classified; M86.172 Other acute osteomyelitis, left ankle and foot; L03.116 Cellulitis of left lower limb; E11.22 Type 2 diabetes mellitus with diabetic chronic kidney disease; E11.65 Type 2 diabetes mellitus with hyperglycemia; E11.40 Type 2 diabetes mellitus with diabetic neuropathy, unspecified; N18.9 Chronic kidney disease, unspecified; E11.69 Type 2 diabetes mellitus with other specified complication; Z79.82 Long term (current) use of aspirin; Z79.84 Long term (current) use of oral hypoglycemic drugs; Z79.4 Long term (current) use of insulin; N40.0 Benign prostatic hyperplasia without lower urinary tract symptoms; K21.9 Gastro-esophageal reflux disease without esophagitis; E78.00 Pure hypercholesterolemia, unspecified; G47.00 Insomnia, unspecified
CPT/HCPCS: 36415; 36416; 73660; 80053; 82962; 85025; 86140; 87040; 87070; 87075; 87077; 87176; 87186; 87205; 88305; 88311; 96365; 96372; 97116; 97760; 99285; J1644; J1815; J2270; J2543; J2704; J3010; J3370; J3490; J7030; J7050; L3260

== ENCOUNTER 2022-12-25 10:10 | Outpatient (CLI) | payer MEDICAID, SELFPAY ==
--- NOTE | 2022-12-25 10:20 | XR_ITS ---
WS: [id number] Left foot, 3 views, 12/25/2022 Clinical Data: wound to left second Comparison: Left great toe, 11/18/2022 Findings: The left great toe has been amputated. There is soft tissue swelling, subcutaneous air and erosion of the distal phalanx of the left second toe. There is a dressing surrounding this toe. The remainder o f the foot is unremarkable. Impression: 1. Soft tissue swelling, subcutaneous air and erosion of distal phalanx of left second toe suspicious for osteomyelitis. 2. Amputation of left great toe.
== END 2022-12-25 10:11 | disposition home or self-care (01) ==
PROVIDERS: PCP Family Medicine; Visit Provider Podiatrist Foot & Ankle Surgery
DX: S91.302A Unspecified open wound, left foot, initial encounter (principal); X58.XXXA Exposure to other specified factors, initial encounter; M86.9 Osteomyelitis, unspecified; M79.89 Other specified soft tissue disorders; Z89.412 Acquired absence of left great toe
CPT/HCPCS: 73630

== ENCOUNTER → 2023-01-15 14:16 | Outpatient (BNVA) | payer MEDICAID, SELFPAY | PROVIDERS: PCP Family Medicine; Visit Provider Podiatrist Foot & Ankle Surgery | DX: M86.9 Osteomyelitis, unspecified; E11.621 Type 2 diabetes mellitus with foot ulcer; L97.524 Non-pressure chronic ulcer of other part of left foot with necrosis of bone; M20.42 Other hammer toe(s) (acquired), left foot; Z79.84 Long term (current) use of oral hypoglycemic drugs; Z79.4 Long term (current) use of insulin | CPT/HCPCS: 73630 ==

== ENCOUNTER → 2023-01-27 10:58 | Outpatient (BNVA) | payer MEDICAID, SELFPAY | PROVIDERS: PCP Family Medicine; Visit Provider Family Medicine | DX: E11.9 Type 2 diabetes mellitus without complications (principal); Z12.5 Encounter for screening for malignant neoplasm of prostate | CPT/HCPCS: 80053; 83036; 85025 ==

== ENCOUNTER → 2023-04-21 13:44 | Outpatient (BNVA) | payer MEDICAID, SELFPAY | PROVIDERS: PCP Family Medicine; Visit Provider Podiatrist Foot & Ankle Surgery | DX: L97.522 Non-pressure chronic ulcer of other part of left foot with fat layer exposed; M86.8X7 Other osteomyelitis, ankle and foot; M20.42 Other hammer toe(s) (acquired), left foot; M21.41 Flat foot [pes planus] (acquired), right foot; M21.42 Flat foot [pes planus] (acquired), left foot | CPT/HCPCS: 73630; 87070; 87075; 87205 ==

== ENCOUNTER 2023-04-25 10:15 | Emergency (ER) | payer MEDICAID, SELFPAY ==
[2023-04-25 10:17] VITALS: BP 131/64; PULSE 71; RESP 16; TEMP 36.6; O2SAT 99
--- NOTE | 2023-04-25 10:40 | XRR_ITS ---
PROCEDURE INFORMATION: Exam: XR Left Foot Exam date and time: 04/25/2023 11:08 AM Age: 52 years old Clinical indication: Injury or trauma; Other: Blister; Wound; Toes; Left little toe; Foreign body involvement not specified; Prior surgery; Surgery date: 1-6 months; Surgery type: Left great toe amputation TECHNIQUE: Imaging protocol: Radiologic exam of the left foot. Views: 3 or more views. COMPARISON: CR XR foot LT min 3V* [id number] 04/21/2023 1:48 PM FINDINGS: Bones/joints: Sharp amputation margin at the great toe MTP. No acute fracture or malalignment. Soft tissues: Soft tissue defect lateral to the 5th toe proximal phalanx. No radiopaque density or underlying osseous destruction. XR/XR foot LT min 3V* [id number] IMPRESSION: Soft tissue wound lateral to the 5th proximal phalanx without underlying bony changes.
--- NOTE | 2023-04-25 10:58 | W.ED.EXTPRO ---
HPI - Extremity Problem General: Chief complaint: Extremity Problem,Nontraumatic Stated complaint: blister on toe, Rash on neck Time Seen by Provider: 04/25/23 10:28 Source: patient Mode of arrival: ambulatory Limitations: no limitations History of Present Illness: 52-year-old male with history of diabetes he has had a history of diabetic foot ulcer he had his left great toe removed before by Dr. Fofana he states he had a small wound on his left pinky toe with redness and see him on Wednesday put him on doxycycline but states the wound is enlarged and has had more erythema he denies any fevers she denies any pains Associated symptoms: Deny chest pain, fever(s) or rash Review of Systems Const: Denies: fever(s), chills, body aches or change in appetite ENMT: Denies: throat pain or dental pain Card: Denies: chest pain Resp: Denies: dyspnea GI: Denies: abdominal pain, nausea, vomiting or diarrhea Musc: Reports: extremity pain; Denies: neck pain or back pain Skin/Breast: Reports: erythema; Denies: rash Neuro: Denies: headache(s) PFSH ED PFSH: Medical History GERD (gastroesophageal reflux disease) Osteomyelitis of great toe of left foot BPH (benign prostatic hyperplasia) Diabetic nephropathy Helicobacter pylori gastritis Reducible umbilical hernia Diabetes mellitus type 2, uncontrolled, with complications Hypercholesterolemia Diabetic neuropathy Family History Other CAD (coronary artery disease) Cancer Diabetes Hyperlipidemia Hypertension Social History Smoking and tobacco/nicotine status: never used tobacco/nicotine Alcohol intake: never Substance/Drug Use: never Physical Exam Const: COMMON NORMALS: no acute distress, patient oriented x3 and healthy appearing HENMT: COMMON NORMALS: normocephalic and atraumatic HEAD & SCALP: normocephalic and atraumatic Neck/C-Spine: COMMON NORMALS: full ROM Chest: COMMONS NORMALS: normal inspection of the chest Resp: COMMON NORMALS: normal respiratory effort Cardio: COMMON NORMALS: regular rate, regular rhythm and No murmurs present (Cardio) RATE: regular rate RHYTHM: regular rhythm Extremity: COMMON NORMALS: full ROM NARRATIVE EXTREMITY EXAM: wound noted to pinky toe on the lateral side with cellulitis Neuro: COMMON NORMALS: patient oriented x3, moves all extremities and no focal motor deficits Psych: COMMON NORMALS: mental status grossly normal, Normal thought process present and cooperative THOUGHT PROCESS: Normal thought process present Skin: COMMON NORMALS: no rashes or lesions noted GENERAL SKIN EXAM: no rashes or lesions noted Course Vital Signs: Vital signs: Vital Signs Temperature 97.9 F 04/25/23 10:17 Pulse Rate 71 04/25/23 10:17 Respiratory Rate 16 04/25/23 10:17 Blood Pressure 131/64 04/25/23 10:17 Pulse Oximetry 99 04/25/23 10:17 Oxygen Delivery Me thod Room Air 04/25/23 10:17 MDM - Extremity (Nontraumatic) Medical Decision Making Patient presents with diabetic foot ulcer with cellulitis worsening on outpatient biotics I spoke to regulatory compliance manager Dr. Fofana who recommended IV robotics and admission Medical Records I reviewed the patient's medical records. Lab Data I reviewed the patient's lab results. 04/25/23 10:58 04/25/23 10:58 Radiology Impressions Foot X-Ray 04/25/23 10:40 IMPRESSION: Soft tissue wound lateral to the 5th proximal phalanx without underlying bony changes. Laboratory Results WBC 11.79 10^3/uL (3.29-11.43) H 04/25/23 10:58 RBC 4.44 10^6/uL (3.85-5.65) 04/25/23 10:58 Hgb 11.60 g/dL (11.27-16.99) 04/25/23 10:58 Hct 37.2 % (37-53) 04/25/23 10:58 MCV 83.8 fl (82-101) 04/25/23 10:58 MCH 26.1 pg (27-33) L 04/25/23 10:58 MCHC 31.2 g/dL (30-55) 04/25/23 10:58 RDW 15.9 % (12.1-15.1) H 04/25/23 10:58 Plt Count 372 10^3/cmm (157-399) 04/25/23 10:58 MPV 10.2 fL (7.4-10.4) 04/25/23 10:58 Neut % (Auto) 64.1 % 04/25/23 10:58 Lymph % (Auto) 25.8 % 04/25/23 10:58 Prentiss % (Auto) 8.2 % 04/25/23 10:58 Eos % (Auto) 1.3 % 04/25/23 10:58 Baso % (Auto) 0.3 % 04/25/23 10:58 Neut # (Auto) 7.56 10^3/uL (1.8-7.7) 04/25/23 10:58 Lymph # (Auto) 3.0 10^3/uL (0.8-4.8) 04/25/23 10:58 Prentiss # (Auto) 1.0 10^3/uL (0.2-0.9) H 04/25/23 10:58 Eos # (Auto) 0.2 10^3/uL (0.0-0.8) 04/25/23 10:58 Baso # (Auto) 0.0 10^3/uL (0.0-0.1) 04/25/23 10:58 Nucleated RBC % (auto) 0 % 04/25/23 10:58 Nucleated RBCs # 0.0 /100WBC 04/25/23 10:58 All radiology interpretation(s) finalized by discharge Discharge Plan Discharge Patient Disposition: Admitted As Inpatient Clinical Impression: Diabetic foot ulcer, Cellulitis Condition: Stable Prescriptions: No Action hydrochlorothiazide 25 mg tablet 25 mg PO QAM Qty: 90 3RF doxycycline hyclate 100 mg capsule 100 mg PO BID 14 Days Qty: 28 0RF (DME) Custom molded diabetic shoes accommodative insole and toe filler to left See Rx Instructions .Route .MEDSUPPLY Qty: 1 0RF Rx Instructions: As directed by lissy perry (DME) diabetic supplies, miscellan. Misc See Rx Instructions .Route Qty: 1 5RF Rx Instructions: Please include all necessary supplies including lancets, testing strips, solution, pin needles. Check sugars daily. (DME) pen needle, diabetic [TechLITE Pen Needle] 32 gauge x 1/4 needle See Rx Instructions .Route Qty: 100 0RF Rx Instructions: As directed pregabalin [Lyrica] 50 mg capsule 50 mg PO BID Qty: 60 5RF Benadryl Allergy 25 mg Tablet 50 mg PO BEDTIME PRN (Reason: Allergic Reaction) ibuprofen 200 mg Tablet 400 mg PO Q6H PRN (Reason: Pain) multivitamin Tablet 1 tab PO QAM aspirin 81 mg Tablet,Delayed Release (Dr/Ec) 81 mg PO QAM pantoprazole 40 mg tablet,delayed release (DR/EC) 40 mg PO QAM atorvastatin 40 mg tablet 40 mg PO BEDTIME lisinopril 20 mg tablet 20 mg PO QAM tamsulosin 0.4 mg capsule 0.4 mg PO QAM metformin 1,000 mg tablet 1,000 mg PO BID insulin glargine [Lantus Solostar U-100 Insulin] 100 unit/mL (3 mL) insulin pen 12 unit SUBCUT BID Invokana 300 mg tablet 300 mg PO QAM oxycodone 5 mg capsule 5 mg PO Q6H PRN (Reason: pain) Qty: 10 0RF Referrals: Andrzej Clarke DO [Primary Care Provider] - Coding Level of Care Code ED Service Bar Cashier for Vijayg Karla
[2023-04-25 11:10] LABS: Basophils % 0.3 %; Eosinophils # 0.2 10^3/uL (0.0-0.8); Eosinophils % 1.3 %; Hematocrit 37.2 % (37-53); Lymphocytes % 25.8 %; Mean Corpuscular HGB Conc 31.2 g/dL (30-55); Mean Corpuscular Hemoglobin 26.1 pg (27-33); Mean Corpuscular Volume 83.8 fl (82-101); Mean Platelet Volume 10.2 fL (7.4-10.4); Monocytes % 8.2 %; Neutrophils # 7.56 10^3/uL (1.8-7.7); Neutrophils % 64.1 %; Nucleated Red Blood Cells % 0 %; Platelet Count 372 10^3/cmm (157-399); Red Blood Count 4.44 10^6/uL (3.85-5.65); Red Cell Distribution Width 15.9 % (12.1-15.1); White Blood Count 11.79 10^3/uL (3.29-11.43)
[2023-04-25] MEDS: vancomycin 1,000 MG in sodium chloride 0.9% 250 ML 250 MG IV (11:10)
--- NOTE | 2023-04-25 11:42 | PC.PHAR ---
pt states he takes care of his own medications-pt states he takes the medications entered
[2023-04-25 12:10] LABS: Anion Gap 15.3 (5-19); Blood Urea Nitrogen 29 mg/dL (6-20); Calcium 9.7 mg/dL (8.5-10.5); Carbon Dioxide 26 mmol/L (22-29); Chloride 98 mmol/L (98-107); Glomerular Filtration Rate 63.8 mL/min (90-130); Glucose 114 mg/dL (65-115); Osmolality Calculated 287 mOsm/kg (285-295); Potassium 4.3 mmol/L (3.5-5.1); Sodium 135 mmol/L (136-145)
[2023-04-25] MEDS: piperacillin-tazobactam 3.375 GM in sodium chloride 0.9% (plus) 50 ML IV (12:36)
[2023-04-25 13:14] VITALS: PULSE 90; O2SAT 96
== END 2023-04-25 13:17 | disposition left against medical advice (07) ==
PROVIDERS: Emergency Provider Emergency Medicine; PCP Family Medicine
DX: E11.621 Type 2 diabetes mellitus with foot ulcer (principal); L03.032 Cellulitis of left toe; E11.21 Type 2 diabetes mellitus with diabetic nephropathy; E11.40 Type 2 diabetes mellitus with diabetic neuropathy, unspecified; Z79.82 Long term (current) use of aspirin; Z79.4 Long term (current) use of insulin; Z79.84 Long term (current) use of oral hypoglycemic drugs
CPT/HCPCS: 73630; 80048; 85025; 96365; 96367; 99284; J2543; J3370; J7050

== ENCOUNTER → 2023-05-05 08:59 | Outpatient (BNVA) | payer MEDICAID, SELFPAY | PROVIDERS: PCP Family Medicine; Visit Provider Family Medicine | DX: E11.9 Type 2 diabetes mellitus without complications (principal); Z12.5 Encounter for screening for malignant neoplasm of prostate; E11.21 Type 2 diabetes mellitus with diabetic nephropathy | CPT/HCPCS: 80048; 83036 ==

== ENCOUNTER 2023-05-12 10:35 | Day surgery (SDC) | payer MEDICAID, SELFPAY ==
[2023-05-12] VITALS (8 sets, daily range): BP systolic 114–144; BP diastolic 72–89; PULSE 74–100; RESP 16–20; TEMP 36.2–37.1; O2SAT 95–100; BMI 34.5
--- NOTE | 2023-05-12 07:26 | W.PM.OPSUD ---
Surgery/Procedure H&P Update DATE OF PROCEDURE: May 12, 2023 DATE H&P PERFORMED: 11/02/22 H&P UPDATE INFORMATION: I have reviewed H&P completed within last 30 days, I have examined patient prior to procedure, No changes to prior documentation and H&P is in [facility] [place] EMR on date indicated PLANNED PROCEDURE: Operation Date: 05/12/23 12:00 Proposed Procedures p Left fifth toe amputation 73754,L97.523(Left) - Parker Fofana DPM
--- NOTE | 2023-05-12 07:27 | PM.OP ---
Operative Report Date of procedure: May 12, 2023 Pre-op diagnosis: Left diabetic foot infection Cellulitis left fifth toe Post-op diagnosis: Same Post-op findings: Devitalized tissue down to and including bone left fifth toe Procedure done: Left fifth toe amputation. CPT code 09956 Implants: 4-0 Vicryl, 4-0 Prolene Specimens removed/disposition: Bone left fifth toe sent to microbiology for Gram stain, culture and sensitivity Pathology: Left fifth toe sent to pathology for permanent Surgeon: Parker Fofana DPM Resin Filterer: Sheila Estimated blood loss: 5 10 IV fluids: 0 Urine output: 0 Complications: None Findings: Devitalized bone left fifth toe distal and intermediate phalanx. Brief History: Infection remains localized to the left fifth toe without extending into the foot. No proximal lymphangitic streaking. Will continue Augmentin, Betadine wet-to-dry twice daily and reducing activities. Planned amputation next week Wednesday or Wednesday pending block availability. I reviewed at length with the patient, the risks, potential complications, benefits, alternatives, expectations, and typical outcomes associated with the surgery. The risks and potential complications were explained in detail, including but not limited to infection, wound dehiscence or soft tissue complications, bleeding and hematoma, chronic edema, neuritis or nerve damage producing numbness or chronic pain, CRPS, failure to relieve pain or worsening pain, thick / painful / unsightly scar, limited motion / stiffness, malposition, delayed union, malunion, or nonunion, fracture, reaction to implants, anesthetic complications, venous thromboembolism, and deformity recurrence. I discussed the notion of no regrets with the patient as it pertains to complications and outcomes. The patient seemed to understand the nature of the proposed care and required convalescence. They asked appropriate questions, answered to their satisfaction. They are aware no guarantees can be made as to a satisfactory outcome and they understand there may be other possible unforeseen complications or outcomes not listed here that will be treated accordingly if they arise. There were no written or implied guarantees given to the patient. They gave informed consent to proceed. Procedure: Under mild sedation the patient was brought to the operating room and remained on the gurney in supine position. A timeout was performed. Anesthesia was then administered by the anesthesia service. Local anesthesia injected by myself consisting of 20 cc of 1% lidocaine plain in a reverse Nicole block fashion to the left foot. Well-padded pneumatic tourniquet applied to the left ankle. The left lower extremity was scrubbed, prepped and draped utilizing normal aseptic technique. Left foot was elevated and left ankle tourniquet was then inflated to 250 mmHg. Patient was directed to the left fifth toe where he wound from dorsal lateral to plantar medial was appreciated through and through at the level of the proximal interphalangeal joint with exposed bone that was of poor density and off yellow-mckeon color a circumferential incision was then carried out full-thickness down to bone at the level of the left fifth metatarsophalangeal joint and the left fifth toe was disarticulated sharply and passed from operative field to be sent to pathology for gross, bone culture of the proximal phalanx head was sent to microbiology for Gram stain, culture and sensitivity. The incision was irrigated with copious amounts sterile send solution. All bleeders were ligated and cauterized as necessary. The level of the amputation at the metatarsal phalange joint of the left fifth toe appeared to be viable with appropriate color and density at the fifth metatarsal head and surrounding soft tissues to have appropriate appearance. After further irrigation the incision was closed in a layered fashion with 4-0 Vicryl reapproximating subcutaneous tissue and 4-0 nylon at skin. The incision was then dressed with Adaptic, sterile 4 x 4's, Kerlix and 4 and Coban. Postop shoe was then applied. Tourniquet was then deflated and a prompt hyperemic response was noted to the distal digits of the left foot. Patient tolerated the procedure and anesthesia well and was transferred to the PACU with vital signs stable and vascular status intact. Following a period of postop monitoring he will be discharged home is to be nonweightbearing to left lower extremity, rest and elevate. Continue with Augmentin, will make appropriate adjustments with antibiotic therapy if cultures yield further information. Patient was given at home care instructions, scheduled follow-up and my cell phone number to contact me with any postoperative questions or concerns.
[2023-05-12 10:55] LABS: Glucose Point of Care 153 mg/dL (70-110)
[2023-05-12] MEDS: sodium chloride 0.9% 1,000 ML 30 ML IV (10:55)
--- NOTE | 2023-05-12 11:01 | ANES.PREANE2 ---
Pre-Anesthetic Assessment Height/Weight: Height 1.83 m Weight 115.666 kg Temp Pulse Resp BP Pulse Ox O2 Del Method 97.4 F L 100 16 144/89 100 Room Air 05/12/23 10:44 05/12/23 10:44 05/12/23 10:44 05/12/23 10:44 05/12/23 10:44 05/12/23 10:46 Preop Diagnosis: Diabetic foot infection, left fifth toe Operation Date: 05/12/23 12:00 Proposed Procedures p Left fifth toe amputation 82792,L97.523(Left) - Parker Fofana DPM Familial anesthetic complications: none Was Beta Zia taken within 24 hours: N/A Was Clonidine taken within 24 hours: N/A Last intake: Intake Last Liquid Date 05/12/23 Last Liquid Time 06:00 Last Solid Date 05/11/23 Last Solid Time 20:00 Social No alcohol and No tobacco Exam alert, oriented x 3, clear to auscultation bilaterally and regular rate & rhythm Airway Submandibular: within normal limits Cervical ROM: within normal limits Mallampati: Class II Dentition: chipped (very poor dentition) CV/HEM Hypertension GI Gastroesophageal Reflux Disease Metabolic Diabetes Mellitus, Hyperlipidemia and Morbid Obesity Anesthetic Plan ASA status: 3 Anesthesia: MAC Medications/Allergies Home Medications Medication Instructions Recorded Confirmed Last Taken Type diabetic supplies, miscellan. #1 ea 08/13/22 05/05/23 Unknown Rx aspirin 81 mg tablet,delayed 81 mg PO QAM 11/18/22 05/11/23 05/11/23 History release atorvastatin 40 mg tablet 40 mg PO BEDTIME 11/18/22 05/11/23 05/11/23 History canagliflozin 300 mg tablet 300 mg PO QAM 11/18/22 05/11/23 05/11/23 History (Invokana) insulin glargine 100 unit/mL (3 12 unit SUBCUT BID 11/18/22 05/11/23 05/11/23 History mL) subcutaneous pen (Lantus Solostar U-100 Insulin) lisinopril 20 mg tablet 20 mg PO QAM 11/18/22 05/11/23 05/11/23 History metformin 1,000 mg tablet 1,000 mg PO BID 11/18/22 05/11/23 05/11/23 History multivitamin 1 tab PO QAM 11/18/22 05/11/23 05/11/23 History pantoprazole 40 mg tablet,delayed 40 mg PO QAM 11/18/22 05/11/23 05/11/23 History release tamsulosin 0.4 mg capsule 0.4 mg PO QAM 11/18/22 05/11/23 05/11/23 History hydrochlorothiazide 25 mg tablet 25 mg PO QAM #90 tabs 12/07/22 05/11/23 05/11/23 Rx pen needle, diabetic 32 gauge x #100 ea 02/01/23 05/05/23 Unknown Rx 1/4 (TechLITE Pen Needle) Custom molded diabetic shoes #1 ea 02/17/23 05/05/23 Unknown Rx accommodative insole and toe filler to left pregabalin 50 mg capsule (Lyrica) 50 mg PO BID #60 caps 03/15/23 05/11/23 05/11/23 Rx diphenhydramine HCl 25 mg tablet 50 mg PO BEDTIME PRN Allergic 04/25/23 05/12/23 04/24/23 History (Benadryl Allergy) Reaction ibuprofen 200 mg tablet 400 mg PO Q6H PRN Pain 04/25/23 05/11/23 05/11/23 History amoxicillin 875 mg-potassium 1 tab PO BID 14 days #28 tabs 05/04/23 05/11/23 05/12/23 Rx clavulanate 125 mg tablet Allergies Allergy/AdvReac Type Severity Reaction Status Date / Time doxycycline Allergy Intermediate ALGY-Hives Verified 05/12/23 10:41 Sulfa (Sulfonamide Allergy rash Verified 05/12/23 10:41 Antibiotics) Current Medications Generic Name Dose Route Start Last Admin Trade Name Freq PRN Reason Stop Dose Admin Sodium Chloride 1,000 mls @ 30 mls/hr 05/12/23 10:45 05/12/23 10:55 Sodium Chloride 0.9% IV 05/13/23 10:44 30 mls/hr .Q24H DIANE Administration PFSH Anesthesia Medical History GERD (gastroesophageal reflux disease) Osteomyelitis of great toe of left foot BPH (benign prostatic hyperplasia) Diabetic nephropathy Helicobacter pylori gastritis Reducible umbilical hernia Diabetes mellitus type 2, uncontrolled, with complications Hypercholesterolemia Diabetic neuropathy Family History Other CAD (coronary artery disease) Cancer Diabetes Hyperlipidemia Hypertension Social History Smoking and tobacco/nicotine status: never used tobacco/nicotine Alcohol intake: never Substance/Drug Use: never Data Anesthesia Cardiac Studies: No Data to Display
[2023-05-12] MEDS: ceFAZolin 2,000 MG in sodium chloride 0.9% (plus) 50 ML 100 MG IV (12:22)
[2023-05-12] MEDS: lidocaine 2% INJ 20 mL INJECTION (12:30)
--- NOTE | 2023-05-12 16:24 | ANE.PACU2 ---
Inpatient post-anesthesia follow up: Airway intact: Yes Vital signs: Temperature 98.7 F Pulse Rate 87 Respiratory Rate 18 Blood Pressure 123/84 Pulse Oximetry 98 Oxygen Delivery Me thod Room Air Oxygen Flow Rate 6 Fraction of Inspir ed Oxygen Hydration adequate: Yes Nausea and vomiting: No Pain level: 1 Mental status: Baseline
== END 2023-05-12 13:40 | disposition home or self-care (01) ==
PROVIDERS: PCP Family Medicine; Visit Provider Podiatrist Foot & Ankle Surgery
PROC: (CPT 28820; principal; 2023-05-12 12:00)
DX: E11.621 Type 2 diabetes mellitus with foot ulcer (principal); L03.032 Cellulitis of left toe; I10 Essential (primary) hypertension; E78.5 Hyperlipidemia, unspecified; E66.01 Morbid (severe) obesity due to excess calories; Z68.34 Body mass index [BMI] 34.0-34.9, adult; N40.0 Benign prostatic hyperplasia without lower urinary tract symptoms; E11.40 Type 2 diabetes mellitus with diabetic neuropathy, unspecified
CPT/HCPCS: 28820; 36416; 82962; 87070; 87077; 87176; 87186; 87205; 88305; 88311; J0690; J2704; J7030

== ENCOUNTER → 2023-08-30 07:59 | Outpatient (BNVA) | payer MEDICAID, SELFPAY | PROVIDERS: PCP Family Medicine; Visit Provider Family Medicine | DX: Z12.5 Encounter for screening for malignant neoplasm of prostate (principal); E78.00 Pure hypercholesterolemia, unspecified; I10 Essential (primary) hypertension; E11.9 Type 2 diabetes mellitus without complications | CPT/HCPCS: 80053; 80061; 83036; 83721; 85025; G0103 ==

== ENCOUNTER → 2023-10-26 10:56 | Outpatient (BNVA) | payer OTHER, SELFPAY | PROVIDERS: PCP Family Medicine; Visit Provider Podiatrist Foot & Ankle Surgery | DX: L97.523 Non-pressure chronic ulcer of other part of left foot with necrosis of muscle (principal) | CPT/HCPCS: 87070; 87075; 87205 ==

== ENCOUNTER 2023-11-19 05:30 | Day surgery (SDC) | payer OTHER, SELFPAY ==
[2023-11-19] VITALS (7 sets, daily range): BP systolic 112–141; BP diastolic 74–90; PULSE 73–80; RESP 16–18; TEMP 36.3–36.9; O2SAT 96–97; BMI 34.5
--- NOTE | 2023-11-19 06:23 | W.PM.OPSUD ---
Surgery/Procedure H&P Update DATE OF PROCEDURE: November 19, 2023 DATE H&P PERFORMED: 11/17/23 H&P UPDATE INFORMATION: I have reviewed H&P completed within last 30 days, I have examined patient prior to procedure, No changes to prior documentation and H&P is in [facility] [place] [facility] [place] on date indicated PREOP DIAGNOSIS: Osteomyelitis left foot PRIMARY INDICATION FOR PROCEDURE: Osteomyelitis left foot PLANNED PROCEDURE: Operation Date: 11/19/23 07:00 Proposed Procedures p Amputation Toe/s Left second toe amputation, Left third toe amputation and Left fourth toe amputation(Left) - Parker Fofana DPM
[2023-11-19] MEDS: sodium chloride 0.9% 1,000 ML 30 ML IV (06:28)
[2023-11-19 06:29] LABS: Glucose Point of Care 240 mg/dL (70-110)
--- NOTE | 2023-11-19 06:45 | ANES.PREANE2 ---
Pre-Anesthetic Assessment Height/Weight: Height 1.83 m Weight 115.666 kg Temp Pulse Resp BP Pulse Ox O2 Del Method 98.4 F 77 16 131/82 96 Room Air 11/19/23 06:10 11/19/23 06:10 11/19/23 06:10 11/19/23 06:10 11/19/23 06:10 11/19/23 06:10 Preop Diagnosis: Osteomyelitis left foot Operation Date: 11/19/23 07:00 Proposed Procedures p Amputation Toe/s Left second toe amputation, Left third toe amputation and Left fourth toe amputation(Left) - Parker Fofana DPM Last intake: Intake Last Liquid Date 11/18/23 Last Liquid Time 19:30 Last Solid Date 11/18/23 Last Solid Time 17:30 Social Tobacco Exam alert, oriented x 3, clear to auscultation bilaterally and regular rate & rhythm Airway Submandibular: within normal limits Cervical ROM: within normal limits Mallampati: Class I Pulmonary None reported CV/HEM None reported Chronic Renal Insufficiency Hepatic None reported GI None reported Metabolic Diabetes Mellitus Neuropsych None reported Anesthetic Plan ASA status: 3 Anesthesia: MAC Risk of > 500 ml blood loss (7ml/kg in children): No Medications/Allergies Home Medications Medication Instructions Recorded Confirmed Last Taken Type diabetic supplies, miscellan. #1 ea 08/13/22 11/17/23 Unknown Rx aspirin 81 mg tablet,delayed 81 mg PO QAM 11/18/22 11/19/23 11/18/23 History release multivitamin 1 tab PO QAM 11/18/22 11/19/23 11/18/23 History hydrochlorothiazide 25 mg tablet 25 mg PO QAM #90 tabs 12/07/22 11/19/23 11/18/23 Rx Custom molded diabetic shoes #1 ea 02/17/23 11/17/23 Unknown Rx accommodative insole and toe filler to left diphenhydramine HCl 25 mg tablet 50 mg PO BEDTIME PRN Allergic 04/25/23 11/19/23 04/24/23 History (Benadryl Allergy) Reaction ibuprofen 200 mg tablet 400 mg PO Q6H PRN Pain 04/25/23 11/19/23 05/11/23 History atorvastatin 40 mg tablet 40 mg PO BEDTIME #90 tabs 09/01/23 11/19/23 11/18/23 Rx blood-glucose meter,continuous #1 ea 09/01/23 11/17/23 Unknown Rx (Dexcom G7 [employer] Claims [employer]st) blood-glucose sensor (Dexcom G7 #2 ea 09/01/23 11/17/23 Unknown Rx Sensor device) insulin glargine 100 unit/mL (3 20 unit (0.2 mL) SUBCUT BID #15 mL 09/01/23 11/19/23 11/18/23 Rx mL) subcutaneous pen (Lantus Solostar U-100 Insulin) lisinopril 20 mg tablet 20 mg PO QAM #90 tabs 09/01/23 11/19/23 11/18/23 Rx metformin 1,000 mg tablet 1,000 mg PO BID #180 tabs 09/01/23 11/19/23 11/18/23 Rx pantoprazole 40 mg tablet,delayed 40 mg PO QAM #90 tabs 09/01/23 11/19/23 11/18/23 Rx release pregabalin 50 mg capsule (Lyrica) 50 mg PO BID #60 caps 09/01/23 11/19/23 11/18/23 Rx tamsulosin 0.4 mg capsule 0.4 mg PO QAM #90 caps 09/01/23 11/19/23 11/18/23 Rx pen needle, diabetic 32 gauge x #100 ea 09/30/23 11/17/23 Unknown Rx 1/4 (TechLITE Pen Needle) levofloxacin 750 mg tablet 750 mg PO DAILY 10 days #10 tabs 11/03/23 11/19/23 11/18/23 Rx Allergies Allergy/AdvReac Type Severity Reaction Status Date / Time doxycycline Allergy Intermediate ALGY-Hives Verified 11/18/23 16:20 Sulfa (Sulfonamide Allergy rash Verified 11/18/23 16:20 Antibiotics) Current Medications Generic Name Dose Route Start Last Admin Trade Name Freq PRN Reason Stop Dose Admin Sodium Chloride 1,000 mls @ 30 mls/hr 11/19/23 06:00 11/19/23 06:28 Sodium Chloride 0.9% IV 11/20/23 05:59 30 mls/hr .Q24H DIANE Administration PFSH Anesthesia Medical History GERD (gastroesophageal reflux disease) Osteomyelitis of great toe of left foot BPH (benign prostatic hyperplasia) Diabetic nephropathy Helicobacter pylori gastritis Reducible umbilical hernia Diabetes mellitus type 2, uncontrolled, with complications Hypercholesterolemia Diabetic neuropathy Family History Other CAD (coronary artery disease) Cancer Diabetes Hyperlipidemia Hypertension Social History (Updated 11/17/23 @ 08:23 by Zeeshan Major LPN) Smoking and tobacco/nicotine status: never used tobacco/nicotine Alcohol intake: never Substance/Drug Use: never Data Anesthesia 11/19/23 06:22 Cardiac Studies: No Data to Display
[2023-11-19 06:51] LABS: Anion Gap 18.5 (5-19); Blood Urea Nitrogen 26 mg/dL (6-20); Calcium 9.5 mg/dL (8.5-10.5); Carbon Dioxide 23 mmol/L (22-29); Chloride 98 mmol/L (98-107); Creatinine Clr Calc Pharmacy 113.4545; Glomerular Filtration Rate 78.5 mL/min (90-130); Glucose 236 mg/dL (65-115); Osmolality Calculated 292 mOsm/kg (285-295); Potassium 4.5 mmol/L (3.5-5.1); Sodium 135 mmol/L (136-145)
[2023-11-19] MEDS: ceFAZolin 2,000 mg SDV 2000 MG IVP (06:57)
[2023-11-19] MEDS: lidocaine 2% INJ 20 mL INJECTION (07:17)
--- NOTE | 2023-11-19 07:29 | P.BOP_ITS ---
Date of Procedure: 07/23/23 Surgeon: Parker Fofana DPM Outside Plant Supervisor(s): Skye DURAND Procedure(s) performed: Amputation of left second, third and fourth toes Findings of the procedure(s): Osteomyelitis left second toe Estimated blood loss: 10 mL Specimen(s) removed: Left second, third and fourth toe sent to pathology for permanent. Cultures have already been taken preoperatively. Post-operative diagnosis: Osteomyelitis left foot No complications with anesthesia or surgery. Tourniquet time 11 minutes. Anesthesia was local MAC.
--- NOTE | 2023-11-19 07:30 | PM.OP ---
Operative Report Date of procedure: November 19, 2023 Pre-op diagnosis: Diabetic foot ulcer left foot History of toe amputations left great and fifth toe Post-op diagnosis: Same Procedure done: 1) left second toe amputation. CPT code 36243 2) left third toe amputation. CPT code 95472 3) left fourth toe amputation. CPT code 14031 Implants: 3-0 Vicryl, 4-0 Vicryl, skin jairo Pathology: Left fourth toe, third toe and second toe sent to pathology for permanent Surgeon: Parker Fofana DPM Communications Advisor: See intraoperative documentation Estimated blood loss: 5 11 Complications: None Brief History: Discussed amputation vs wound care and straightening of toe when healed -patient would just like to move forward with amputation when he can figure out about his bills so he can afford to take off from work. He has a history of left great toe amputation and history of left fifth toe amputation. He would like to remove toes 2, 3 and 4 as he does not want to be left which is toes 3 and 4 after this surgery and thinks that they will become subjective wound formation as deformity progresses just like the second toe. I reviewed at length with the patient, the risks, potential complications, benefits, alternatives, expectations, and typical outcomes associated with the surgery. The risks and potential complications were explained in detail, including but not limited to infection, wound dehiscence or soft tissue complications, bleeding and hematoma, chronic edema, neuritis or nerve damage producing numbness or chronic pain, CRPS, failure to relieve pain or worsening pain, thick / painful / unsightly scar, limited motion / stiffness, malposition, delayed union, malunion, or nonunion, fracture, reaction to implants, anesthetic complications, venous thromboembolism, and deformity recurrence. I discussed the notion of no regrets with the patient as it pertains to complications and outcomes. The patient seemed to understand the nature of the proposed care and required convalescence. They asked appropriate questions, answered to their satisfaction. They are aware no guarantees can be made as to a satisfactory outcome and they understand there may be other possible unforeseen complications or outcomes not listed here that will be treated accordingly if they arise. There were no written or implied guarantees given to the patient. They gave informed consent to proceed. He has a history of the left great toe amputated and the left fifth toe amputated. Given the extent of osteomyelitis of his left second toe he wants to have the third and fourth removed so that he does not just have 2 toes left susceptible to contractures, wound formation, infections and subsequent amputation. Procedure: Under mild sedation patient was brought to the operating room and remained on the gurney in supine position. A timeout was performed. Anesthesia was then administered by the anesthesia service. Local anesthesia injected by myself consisting of lidocaine and Marcaine in a left second, third, fourth ray block fashion with application of a tourniquet to the left ankle. Left lower extremity was scrubbed, prepped and draped utilizing normal aseptic technique. Left ankle tourniquet was inflated to 250 mmHg. Attention was directed to the left second toe, third toe and fourth toe where a full-thickness incision was performed sharply through the joint disarticulating the second, third, fourth toe of the left foot through the metatarsophalangeal joint, toes 2, 3, 4, 5 were sent to pathology for permanent and gross anatomic review. The extensor and flexor tendons were transected under traction at the most proximal margin, all bleeders were ligated and cauterized as necessary. Under direct visualization the second, third and fourth metatarsal heads appeared to have appropriate bone density and coloration, no clinical signs of infection. After further irrigation the incisions were closed with 3-0 Vicryl deep fascia, 4-0 Vicryl subcutaneous tissue followed by skin jairo. Dressing consisting of Adaptic, sterile 4 x 4's, Kerlix, Mane wrap and Darco shoe were applied. Tourniquet was deflated and a prompt hyperemic response noted to the distal amputation site of the left forefoot. The patient tolerated the procedure and anesthesia well and was transferred to the PACU with vital signs stable and vascular status intact. Following a period of postoperative monitoring be discharged home without home care instructions and schedule follow-up.
--- NOTE | 2023-11-19 13:35 | ANE.PACU2 ---
Inpatient post-anesthesia follow up: Airway intact: Yes Vital signs: Temperature 98.0 F Pulse Rate 79 Respiratory Rate 17 Blood Pressure 141/90 Pulse Oximetry 97 Oxygen Delivery Me thod Room Air Oxygen Flow Rate Fraction of Inspir ed Oxygen Hydration adequate: Yes Nausea and vomiting: No Pain level: controlled Mental status: Baseline Additional Comments: no apparent anesthetic complications noted
== END 2023-11-19 08:17 | disposition home or self-care (01) ==
PROVIDERS: Anesthesiology; PCP Family Medicine; Visit Provider Podiatrist Foot & Ankle Surgery
PROC: (CPT 28820; principal; 2023-11-19 07:00)
DX: E11.621 Type 2 diabetes mellitus with foot ulcer (principal); Z89.412 Acquired absence of left great toe; Z89.422 Acquired absence of other left toe(s); Z79.82 Long term (current) use of aspirin; Z79.4 Long term (current) use of insulin; Z79.84 Long term (current) use of oral hypoglycemic drugs; K21.9 Gastro-esophageal reflux disease without esophagitis; N40.0 Benign prostatic hyperplasia without lower urinary tract symptoms; E11.40 Type 2 diabetes mellitus with diabetic neuropathy, unspecified
CPT/HCPCS: 28820 ×3; 36415; 36416; 80048; 82962; 88305; 88311; J0690; J2704; J3010; J7030

== ENCOUNTER → 2023-11-30 08:47 | Outpatient (BNVA) | payer OTHER, SELFPAY | PROVIDERS: PCP Family Medicine; Visit Provider Family Medicine | DX: E11.9 Type 2 diabetes mellitus without complications (principal); E87.6 Hypokalemia; Z79.4 Long term (current) use of insulin | CPT/HCPCS: 80048; 83036 ==

== ENCOUNTER → 2024-07-10 15:00 | Outpatient (BNVA) | payer OTHER, SELFPAY | PROVIDERS: PCP Family Medicine; Visit Provider Family Medicine | DX: R79.89 Other specified abnormal findings of blood chemistry (principal); E11.9 Type 2 diabetes mellitus without complications; Z79.4 Long term (current) use of insulin; E83.42 Hypomagnesemia; Z12.5 Encounter for screening for malignant neoplasm of prostate; E55.9 Vitamin D deficiency, unspecified; E11.40 Type 2 diabetes mellitus with diabetic neuropathy, unspecified; N40.0 Benign prostatic hyperplasia without lower urinary tract symptoms; K21.9 Gastro-esophageal reflux disease without esophagitis; I10 Essential (primary) hypertension; E78.2 Mixed hyperlipidemia; H01.003 Unspecified blepharitis right eye, unspecified eyelid; H01.021 Squamous blepharitis right upper eyelid | CPT/HCPCS: 80053; 80061; 82043; 82306; 82607; 83036; 83735; 84443; G0103 ==